=== PATIENT | male | born 1950 | race Caucasian/White ===

== ENCOUNTER 2019-11-04 12:10 | Inpatient (IN) | payer MEDICARE, BC ==
[2019-11-04 12:48] LABS: ANION GAP 14.1; CHLORIDE,CL 99 mmol/L (101-111); SODIUM,NA 137 mmol/L (135-145)
--- NOTE | 2019-11-04 13:08 | EDM.PDOC ---
ED HPI GENERAL MEDICAL PROBLEM - General Chief Complaint: Cardiovascular Problem Stated Complaint: AMBULANCE Time Seen by Provider: 11/04/19 12:58 Source of Information: Reports: Patient, RN, RN Notes Reviewed History Limitations: Reports: No Limitations - History of Present Illness INITIAL COMMENTS - FREE TEXT/NARRATIVE: patient to ER per [facility] with complaint of decreased mobility due to increased swelling to the right lower leg. Patient states he had a right hip replacement on October 22 at [facility] by Dr. Santana. states he was seen on October 26 in the ER for a post surgical seroma of the right hip/buttock. Patient was seen by Dr. Cespedes in the clinic on Tuesday. He states labs and ultrasound were done at that time, but results have not beenelayed to the patient yet. was also given Lasix 10 mg on that day.Patient's states he does have a history of a valve insufficiency. Onset: Gradual Duration: Constant, Getting Worse Location: Reports: Lower Extremity, Right - Related Data Allergies Allergy/AdvReac Type Severity Reaction Status Date / Time No Known Allergies Allergy Verified 11/04/19 14:39 Home Meds: Home Meds Aspirin [Halfprin] 81 mg PO DAILY 12/02/13 [History] Metoprolol Succinate [Toprol XL] 50 mg PO BID 12/02/13 [History] Losartan [Cozaar] 25 mg PO DAILY 04/29/15 [History] Bumetanide [Bumex] 3 mg PO DAILY 07/24/15 [History] Potassium Chloride [Klor-Con 10] 30 meq PO BIDMEALS 02/19/16 [History] Sertraline [Zoloft] 75 mg PO BEDTIME 02/19/16 [History] Warfarin Sodium [Jantoven] 6 mg PO DAILY 07/18/16 [History] Albuterol Sulfate [Proair Hfa] 1 puff IH BID PRN 11/04/19 [History] Allopurinol [Zyloprim] 100 mg PO TID 11/04/19 [History] Budesonide/Formoterol Fumarate [Symbicort 160-4.5 Mcg Inhaler] 2 puff IH BID [History] Carboxymethylcellulose Sodium [Refresh Tears] 2 drop EYELF BID 11/04/19 [History ] Docusate Sodium [Colace Clear] 50 mg PO BID 11/04/19 [History] Latanoprost 1 drop EYELF BEDTIME 11/04/19 [History] Pantoprazole [ProTONIX] 40 mg PO DAILY 11/04/19 [History] Pregabalin 150 mg PO QPM 11/04/19 [History] Rosuvastatin [Crestor] 10 mg PO BEDTIME 11/04/19 [History] Timolol Maleate [Timoptic 0.5% Opth Soln] 1 drop EYELF DAILY 11/04/19 [History] dexAMETHasone [Decadron 0.1% Ophth Soln] 1 drop EYELF DAILY 11/04/19 [History] metFORMIN HCl [Metformin HCl] 500 mg PO BID 11/04/19 [History] metOLazone [Metolazone] 2.5 mg PO DAILY 11/04/19 [History] Past Medical History HEENT History: Reports: Other (See Below) Other HEENT History: 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 retinal detachment Cardiovascular History: Reports: Afib, SOB on Exertion Other Cardiovascular History: a fib Respiratory History: Reports: COPD, Sleep Apnea, SOB Gastrointestinal History: Reports: GERD Musculoskeletal History: Reports: Arthritis Psychiatric History: Reports: Depression Endocrine/Metabolic History: Reports: Obesity/BMI 30+ - Past Surgical History HEENT Surgical History: Reports: Other (See Below) Musculoskeletal Surgical History: Reports: Hip Replacement, Other (See Below) Social & Family History - Family History Family Medical History: Noncontributory - Tobacco Use Smoking Status *Q: Former Smoker Used Tobacco, but Quit: Yes Month/Year Tobacco Last Used: quit 4 years ago - Recreational Drug Use Recreational Drug Use: No - Living Situation & Occupation Living situation: Reports: , with Family ED ROS GENERAL - Review of Systems Review Of Systems: Comprehensive ROS is negative, except as noted in HPI. ED EXAM, GENERAL - Physical Exam Exam: See Below Exam Limited By: No Limitations General Appearance: Alert, WD/WN, Mild Distress Eye Exam: Left Eye: Proptosis Ears: Normal External Exam, Hearing Grossly Normal Nose: Normal Inspection Throat/Mouth: Normal Inspection, Normal Voice, No Airway Compromise Head: Atraumatic, Normocephalic Neck: Normal Inspection, Supple, Non-Tender, Full Range of Motion Respiratory/Chest: No Respiratory Distress, Lungs Clear, Normal Breath Sounds, No Accessory Muscle Use, Chest Non-Tender Cardiovascular: Normal Peripheral Pulses, Regular Rate, Rhythm, No Edema, No Gallop, No JVD, No Murmur, No Rub Peripheral Pulses: 1+: Dorsalis Pedis (L), Dorsalis Pedis (R), 2+: Radial (L), Radial (R) GI/Abdominal: Normal Bowel Sounds, Soft, Non-Tender (Male) Exam: Deferred Rectal (Males) Exam: Deferred Back Exam: Normal Inspection, Full Range of Motion, NT Extremities: Normal Inspection, Normal Range of Motion, Normal Capillary Refill , Joint Swelling, Leg Pain Neurological: Alert, Oriented, CN II-XII Intact, Normal Cognition, Normal Gait, Normal Reflexes, No Motor/Sensory Deficits Psychiatric: Normal Affect, Normal Mood Skin Exam: Warm, Dry, Intact, No Rash Lymphatic: No Adenopathy Course - Vital Signs Last Recorded V/S: Last Vital Signs Temp 98.1 F 11/05/19 07:41 Pulse 76 11/05/19 08:35 Resp 18 11/05/19 07:41 BP 117/61 11/05/19 08:36 Pulse Ox 93 L 11/05/19 07:41 - Orders/Labs/Meds Orders: Active Orders 24 hr Category Date Time Status Peripheral IV Care [RC] 09,21 Care 11/04/19 12:11 Active Sodium Chloride 0.9% [Saline Flush] Med 11/04/19 12:11 Active 10 ml FLUSH ASDIRECTED PRN Peripheral IV Insertion Adult [OM.PC] Stat Oth 11/04/19 12:11 Ordered Medication Orders Albuterol (Proventil Hfa) 0 gm INH BID PRN PRN Reason: Wheezing Allopurinol (Zyloprim) 100 mg PO TID [facility] Last Admin: 11/05/19 08:36 Dose: 100 mg Admin: 11/04/19 20:48 Dose: 100 mg Artificial Tears (Refresh Celluvisc) 0 each EYELF BID [facility] Last Admin: 11/05/19 08:44 Dose: 1 each Aspirin (Halfprin) 81 mg PO DAILY [facility] Last Admin: 11/05/19 08:34 Dose: 81 mg Dexamethasone (Decadron 0.1% Ophth Soln) 0 ml EYELF DAILY [facility] Last Admin: 11/05/19 08:45 Dose: 1 drop Admin: 11/04/19 21:10 Dose: Not Given Docusate Sodium (Colace) 100 mg PO BID [facility] Last Admin: 11/05/19 08:33 Dose: 100 mg Admin: 11/04/19 20:48 Dose: 100 mg Furosemide (Lasix) 60 mg IVPUSH BID@0800,1400 [facility] Last Admin: 11/05/19 08:36 Dose: 60 mg Insulin Human Lispro (Humalog) 0 unit SUBCUT WITHMEALSANDBED [facility]; Protocol Last Admin: 11/05/19 08:36 Dose: Not Given Admin: 11/04/19 20:45 Dose: Admin: 11/04/19 18:21 Dose: Not Given Latanoprost (Xalatan 0.005% Oph Soln) 0 ml EYELF BEDTIME [facility] Last Admin: 11/04/19 20:46 Dose: 1 drop Losartan Potassium (Cozaar) 25 mg PO DAILY [facility] Last Admin: 11/05/19 08:36 Dose: 25 mg Metformin HCl (Glucophage) 500 mg PO BIDMEALS [facility] Last Admin: 11/05/19 08:35 Dose: 500 mg Admin: 11/04/19 18:35 Dose: 500 mg Metolazone (Zaroxolyn) 2.5 mg PO DAILY [facility] Last Admin: 11/05/19 08:36 Dose: 2.5 mg Metoprolol Succinate (Toprol Xl) 50 mg PO BID [facility] Last Admin: 11/05/19 08:35 Dose: 50 mg Admin: 11/04/19 20:48 Dose: 50 mg Mometasone Furoate/Formoterol Fumar (Dulera 200-5 Mcg) 2 puff IH BID [facility] Last Admin: 11/05/19 08:46 Dose: 2 puff Admin: 11/04/19 20:46 Dose: 2 puff Pantoprazole Sodium (Protonix) 40 mg PO ACBREAKFAST [facility] Last Admin: 11/05/19 05:49 Dose: 40 mg Potassium Chloride (Klor-Con 10) 30 meq PO BIDMEALS [facility] Last Admin: 11/05/19 08:34 Dose: 30 meq Admin: 11/04/19 18:34 Dose: 30 meq Potassium Chloride (Klor-Con 10) 20 meq PO ONETIME ONE Stop: 11/05/19 09:24 Pregabalin (Lyrica) 150 mg PO BEDTIME [facility] Last Admin: 11/04/19 20:48 Dose: 150 mg Rosuvastatin Calcium (Crestor) 10 mg PO BEDTIME [facility] Last Admin: 11/04/19 20:47 Dose: 10 mg Sertraline HCl (Zoloft) 75 mg PO BEDTIME [facility] Last Admin: 11/04/19 20:48 Dose: 75 mg Sodium Chloride (Saline Flush) 10 ml FLUSH ASDIRECTED PRN PRN Reason: Keep Vein Open Last Admin: 11/04/19 14:25 Dose: 10 ml Timolol Maleate (Timoptic 0.5% Ophth Soln) 0 ml EYELF DAILY [facility] Last Admin: 11/05/19 08:45 Dose: 1 drop Warfarin Sodium (Pharmacy To Dose - Warfarin) 1 dose .XX ASDIRECTED [facility] Labs: Laboratory Tests 11/04/19 11/04/19 Range/Units 12:23 12:23 WBC 9.9 (5.0-10.0) 10^3/uL RBC 3.96 L (4.6-6.2) 10^6/uL Hgb 13.1 L (14.0-18.0) g/dL Hct 39.9 L (40.0-54.0) % MCV 100.8 H (80-100) fL MCH 33.1 (27.0-34.0) pg MCHC 32.8 L (33.0-35.0) g/dL Plt Count 361 D (150-450) 10^3/uL Neut % (Auto) 76.1 H (42.2-75.2) % Lymph % (Auto) 15.2 L (20.5-50.1) % [place] % (Auto) 5.9 (2-8) % Eos % (Auto) 2.3 (1.0-3.0) % Baso % (Auto) 0.5 (0.0-1.0) % Sodium 137 (135-145) mmol/L Potassium 3.1 L (3.6-5.0) mmol/L Chloride 99 L (101-111) mmol/L Carbon Dioxide 27.0 (21.0-31.0) mmol/L Anion Gap 14.1 BUN 15 (7-18) mg/dL Creatinine 0.9 (0.6-1.3) mg/dL Est Cr Clr Drug Dosing TNP Estimated GFR (MDRD) > 60 BUN/Creatinine Ratio 16.66 Glucose 156 H (74-105) mg/dL Calcium 8.7 (8.4-10.2) mg/dl Total Bilirubin 0.7 (0.2-1.0) mg/dL AST 20 (10-42) IU/L ALT 15 (10-60) IU/L Alkaline Phosphatase 88 (42-121) IU/L Troponin I < 0.02 (0.00-0.02) ng/ml B-Natriuretic Peptide 20 (0-100) pg/ml Total Protein 6.7 (6.7-8.2) g/dl Albumin 3.6 (3.2-5.5) g/dl Globulin 3.1 Albumin/Globulin Ratio 1.16 Meds: Medications Generic Name Dose Route Start Last Admin Trade Name Freq PRN Reason Stop Dose Admin Albuterol 0 gm 11/04/19 17:57 Proventil Hfa INH BID PRN Wheezing Allopurinol 100 mg 11/04/19 21:00 11/05/19 08:36 Zyloprim PO 100 mg TID [facility] Administration Artificial Tears 0 each 11/05/19 09:00 11/05/19 08:44 Refresh Celluvisc EYELF 1 each BID [facility] Administration Aspirin 81 mg 11/05/19 09:00 11/05/19 08:34 Halfprin PO 81 mg DAILY [facility] Administration Dexamethasone 0 ml 11/04/19 20:45 11/05/19 08:45 Decadron 0.1% Ophth Soln EYELF 1 drop DAILY [facility] Administration Docusate Sodium 100 mg 11/04/19 21:00 11/05/19 08:33 Colace PO 100 mg BID [facility] Administration Furosemide 60 mg 11/05/19 08:00 11/05/19 08:36 Lasix IVPUSH 60 mg BID@0800,1400 [facility] Administration Insulin Human Lispro 0 unit 11/04/19 18:00 11/05/19 08:36 Humalog SUBCUT Not Given WITHMEALSANDBED [facility] Protocol Latanoprost 0 ml 11/04/19 21:00 11/04/19 20:46 Xalatan 0.005% Ophth Soln EYELF 1 drop BEDTIME [facility] Administration Losartan Potassium 25 mg 11/05/19 09:00 11/05/19 08:36 Cozaar PO 25 mg DAILY [facility] Administration Metformin HCl 500 mg 11/04/19 18:00 11/05/19 08:35 Glucophage PO 500 mg BIDMEALS [facility] Administration Metolazone 2.5 mg 11/05/19 09:00 11/05/19 08:36 Zaroxolyn PO 2.5 mg DAILY [facility] Administration Metoprolol Succinate 50 mg 11/04/19 21:00 11/05/19 08:35 Toprol Xl PO 50 mg BID [facility] Administration Mometasone Furoate/Formoterol Fumar 2 puff 11/04/19 21:00 11/05/19 08:46 Dulera 200-5 Mcg IH 2 puff BID [facility] Administration Pantoprazole Sodium 40 mg 11/05/19 06:00 11/05/19 05:49 Protonix PO 40 mg ACBREAKFAST [facility] Administration Potassium Chloride 30 meq 11/04/19 18:00 11/05/19 08:34 Klor-Con 10 PO 30 meq BIDMEALS [facility] Administration Potassium Chloride 20 meq 11/05/19 09:23 Klor-Con 10 PO 11/05/19 09:24 ONETIME ONE Pregabalin 150 mg 11/04/19 21:00 11/04/19 20:48 Lyrica PO 150 mg BEDTIME [facility] Administration Rosuvastatin Calcium 10 mg 11/04/19 21:00 11/04/19 20:47 Crestor PO 10 mg BEDTIME [facility] Administration Sertraline HCl 75 mg 11/04/19 21:00 11/04/19 20:48 Zoloft PO 75 mg BEDTIME [facility] Administration Sodium Chloride 10 ml 11/04/19 12:11 11/04/19 14:25 Saline Flush FLUSH 10 ml ASDIRECTED PRN Administration Keep Vein Open Timolol Maleate 0 ml 11/05/19 09:00 11/05/19 08:45 Timoptic 0.5% Ophth Soln EYELF 1 drop DAILY [facility] Administration Warfarin Sodium 1 dose 11/04/19 16:00 Pharmacy To Dose - Warfarin .XX ASDIRECTED [facility] Discontinued Medications Generic Name Dose Route Start Last Admin Trade Name Freq PRN Reason Stop Dose Admin Dexamethasone 0 ml 11/04/19 21:00 Decadron 0.1% Ophth Soln EYERT BID [facility] Dexamethasone 1 ml 11/04/19 20:30 11/04/19 21:09 Decadron 0.1% Ophth Soln EYELF Not Given BID [facility] Furosemide 60 mg 11/04/19 15:41 11/04/19 15:53 Lasix IVPUSH 11/04/19 15:42 60 mg NOW ONE Administration Non-Formulary Medication 1 drop 11/05/19 09:00 Timolol [Betimol] OP DAILY [facility] Non-Formulary Medication 15 ml 11/04/19 21:00 Carboxymethylcellulose Sodium EYELF BID [facility] Potassium Chloride 40 meq 11/04/19 15:55 11/04/19 17:04 Klor-Con 10 PO 11/04/19 15:56 40 meq ONETIME ONE Administration Warfarin Sodium 6 mg 11/05/19 18:00 Coumadin PO DAILY@1800 [facility] - Radiology Interpretation Free Text/Narrative:: Chest xray: FINDINGS: Limitations: Patient positioning limits the examination. Apical lordotic technique was utilized. Lungs: Unremarkable. No consolidation. Pleural space: Unremarkable. No pleural effusion. No pneumothorax. Heart/Mediastinum: There is cardiomegaly. Bones/joints: Unremarkable. IMPRESSION: No acute findings. Thank you for allowing us to participate in the care of your patient. Dictated and Authenticated by: Everardo Edwards MD 11/04/2019 1:18 PM Central Time ([place] & [place]) See rad report - Re-Assessments/Exams Free Text/Narrative Re-Assessment/Exam: Discussed patient case with Dr. Munguia who agreed to accept the patient for inpatient admission. Departure - Departure Time of Disposition: 14:00 Disposition: Admitted As Inpatient 68 Reason for Transfer *Q: Other Condition: Fair Clinical Impression: Lymphedema Sepsis Event Note - Evaluation Sepsis Screening Result: No Definite Risk - Focused Exam Date Exam was Performed: 11/05/19 Time Exam was Performed: 09:54 - My Orders Last 24 Hours: My Active Orders 11/04/19 12:11 Peripheral IV Care [RC] 09,21 Sodium Chloride 0.9% [Saline Flush] 10 ml FLUSH ASDIRECTED PRN Peripheral IV Insertion Adult [OM.PC] Stat - Assessment/Plan Last 24 Hours: My Active Orders 11/04/19 12:11 Peripheral IV Care [RC] 09,21 Sodium Chloride 0.9% [Saline Flush] 10 ml FLUSH ASDIRECTED PRN Peripheral IV Insertion Adult [OM.PC] Stat
[2019-11-04] MEDS: Sodium Chloride 0.9% 10 ML Syringe FLUSH PRN (14:25)
--- NOTE | 2019-11-04 15:12 | PCM.HP ---
H&P History of Present Illness - General Date of Service: 11/04/19 Admit Problem/Dx: Admission Diagnosis/Problem Admission Diagnosis/Problem Lymphedema Source of Information: Patient, Old Records - History of Present Illness Initial Comments - Free Text/Narative: This is a 69 Y/O M with past Medical history of Hypertension, Diabetes, A-Fib, COPD, GERD, S/P right total hip arthoplasty by Dr Santana on 10/18/19. Pt presented to ER with complain of weakness and swelling of Rt LE. He has Rt LE little more swollen than Left LE and it is secondary to Rt YESSY. He says he chronically use tight stockings but not able to use it because swelling is more. He is able to walk with walker and he will have follow up with Dr. Santana in Nov, and at that time he is going to recommend Physical therapy. Onset of Symptoms: Reports: Gradual Duration of Symptoms: Reports: Day(s): - Related Data Allergies/Adverse Reactions: Allergies Allergy/AdvReac Type Severity Reaction Status Date / Time No Known Allergies Allergy Verified 11/04/19 14:39 Home Medications: Home Meds Aspirin [Halfprin] 81 mg PO DAILY 12/02/13 [History] Metoprolol Succinate [Toprol XL] 50 mg PO BID 12/02/13 [History] Losartan [Cozaar] 25 mg PO DAILY 04/29/15 [History] Bumetanide [Bumex] 3 mg PO DAILY 07/24/15 [History] Potassium Chloride [Klor-Con 10] 30 meq PO BIDMEALS 02/19/16 [History] Sertraline [Zoloft] 75 mg PO BEDTIME 02/19/16 [History] Warfarin Sodium [Jantoven] 6 mg PO DAILY 07/18/16 [History] Allopurinol [Zyloprim] 100 mg PO TID 11/04/19 [History] Docusate Sodium [Colace Clear] 50 mg PO BID 11/04/19 [History] Pantoprazole [ProTONIX] 40 mg PO DAILY 11/04/19 [History] Pregabalin 150 mg PO QPM 11/04/19 [History] Rosuvastatin [Crestor] 10 mg PO BEDTIME 11/04/19 [History] Timolol [Betimol] 1 drop OP DAILY 11/04/19 [History] dexAMETHasone [Decadron 0.1% Ophth Soln] 2 drop OP BID 11/04/19 [History] metFORMIN HCl [Metformin HCl] 500 mg PO BID 11/04/19 [History] metOLazone [Metolazone] 2.5 mg PO DAILY 11/04/19 [History] Past Medical History HEENT History: Reports: Other (See Below) Other HEENT History: 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 retinal detachment Cardiovascular History: Reports: Afib, SOB on Exertion Other Cardiovascular History: a fib Respiratory History: Reports: COPD, Sleep Apnea, SOB Gastrointestinal History: Reports: GERD Musculoskeletal History: Reports: Arthritis Psychiatric History: Reports: Depression Endocrine/Metabolic History: Reports: Obesity/BMI 30+ - Past Surgical History HEENT Surgical History: Reports: Other (See Below) Musculoskeletal Surgical History: Reports: Hip Replacement, Other (See Below) Social & Family History - Family History Family Medical History: Noncontributory - Tobacco Use Smoking Status *Q: Former Smoker Used Tobacco, but Quit: Yes Month/Year Tobacco Last Used: quit 4 years ago - Recreational Drug Use Recreational Drug Use: No - Living Situation & Occupation Living situation: Reports: , with Family H&P Review of Systems - Review of Systems: Review Of Systems: See Below General: Reports: Weakness. Denies: Fever, Malaise HEENT: Denies: Dysphasia, Headaches, Sinus Congestion, Sore Throat, Visual Changes Pulmonary: Denies: Shortness of Breath, Wheezing, Cough, Sputum Cardiovascular: Reports: Edema. Denies: Chest Pain, Lightheadedness Gastrointestinal: Denies: Abdominal Pain, Diarrhea, Nausea, Vomiting Genitourinary: Denies: Dysuria, Burning, Urgency, Flank Pain Musculoskeletal: Reports: Other (Rt hip Pain). Denies: Neck Pain, Arm Pain, Leg Pain Skin: Denies: Jaundice, Rash, Change in Color Psychiatric: Reports: No Symptoms Neurological: Reports: No Symptoms Exam - Exam Exam: See Below - Vital Signs Vital Signs: Last Vital Signs Temp 36.3 C 11/04/19 14:42 Pulse 90 11/04/19 14:42 Resp 20 11/04/19 14:42 BP 142/78 H 11/04/19 14:42 Pulse Ox 98 11/04/19 14:42 Weight: 143.97 kg - Exam Quality Assessment: DVT Prophylaxis. No: Supplemental Oxygen, Urinary Catheter General: Alert, Oriented, Cooperative HEENT: Conjunctiva Clear, EOMI, Mucosa Moist & [place], Pupils Equal Neck: No: Lymphadenopathy, Thyromegaly Lungs: Clear to Auscultation, Normal Respiratory Effort Cardiovascular: Irregular Rhythm, Systolic Murmur GI/Abdominal Exam: Normal Bowel Sounds, Soft, Non-Tender, No Organomegaly, No Distention (Male) Exam: Deferred Rectal (Males) Exam: Deferred Back Exam: Normal Inspection Extremities: Normal Inspection, Pedal Edema Skin: Warm, Dry, Intact Neurological: Cranial Nerves Intact, Reflexes Equal Bilateral Neuro Extensive - Mental Status: Alert, Oriented x3, Normal Mood/Affect, Normal Cognition, Memory Intact Neuro Extensive - Motor, Sensory, Reflexes: CN II-XII Intact Psychiatric: Alert, Normal Affect, Normal Mood - Patient Data Lab Results Last 24 hrs: Laboratory Results - last 24 hr 11/04/19 11/04/19 Range/Units 12:23 12:23 WBC 9.9 (5.0-10.0) 10^3/uL RBC 3.96 L (4.6-6.2) 10^6/uL Hgb 13.1 L (14.0-18.0) g/dL Hct 39.9 L (40.0-54.0) % MCV 100.8 H (80-100) fL MCH 33.1 (27.0-34.0) pg MCHC 32.8 L (33.0-35.0) g/dL Plt Count 361 D (150-450) 10^3/uL Neut % (Auto) 76.1 H (42.2-75.2) % Lymph % (Auto) 15.2 L (20.5-50.1) % [place] % (Auto) 5.9 (2-8) % Eos % (Auto) 2.3 (1.0-3.0) % Baso % (Auto) 0.5 (0.0-1.0) % Sodium 137 (135-145) mmol/L Potassium 3.1 L (3.6-5.0) mmol/L Chloride 99 L (101-111) mmol/L Carbon Dioxide 27.0 (21.0-31.0) mmol/L Anion Gap 14.1 BUN 15 (7-18) mg/dL Creatinine 0.9 (0.6-1.3) mg/dL Est Cr Clr Drug Dosing TNP Estimated GFR (MDRD) > 60 BUN/Creatinine Ratio 16.66 Glucose 156 H (74-105) mg/dL Calcium 8.7 (8.4-10.2) mg/dl Total Bilirubin 0.7 (0.2-1.0) mg/dL AST 20 (10-42) IU/L ALT 15 (10-60) IU/L Alkaline Phosphatase 88 (42-121) IU/L Troponin I < 0.02 (0.00-0.02) ng/ml B-Natriuretic Peptide 20 (0-100) pg/ml Total Protein 6.7 (6.7-8.2) g/dl Albumin 3.6 (3.2-5.5) g/dl Globulin 3.1 Albumin/Globulin Ratio 1.16 Result Diagrams: 11/04/19 12:23 11/04/19 12:23 - Problem List (1) Hypertension SNOMED Code(s): 60818734 ICD Code: I10 - ESSENTIAL (PRIMARY) HYPERTENSION Status: Acute Current Visit: Yes (2) Atrial fibrillation SNOMED Code(s): 55667171 ICD Code: I48.91 - UNSPECIFIED ATRIAL FIBRILLATION Status: Acute Current Visit: No Qualifiers: Atrial fibrillation type: chronic (3) Leg edema SNOMED Code(s): 233918974 ICD Code: R60.0 - LOCALIZED EDEMA Status: Acute Current Visit: No Problem List Initiated/Reviewed/Updated: Yes Orders Last 24hrs: Active Orders 24 hr Category Date Time Status Admission Diagnosis [ADT] Stat ADT 11/04/19 14:25 Ordered Admission Status [Patient Status] [ADT] Routine ADT 11/04/19 14:25 Active EKG Documentation Completion [RC] STAT Care 11/04/19 12:11 Active Peripheral IV Care [RC] . DIRECTED Care 11/04/19 12:11 Active Chest 1V Frontal [CR] Stat Exams 11/04/19 12:11 Taken Sodium Chloride 0.9% [Saline Flush] Med 11/04/19 12:11 Active 10 ml FLUSH ASDIRECTED PRN Peripheral IV Insertion Adult [OM.PC] Stat Oth 11/04/19 12:11 Ordered Medication Orders Sodium Chloride (Saline Flush) 10 ml FLUSH ASDIRECTED PRN PRN Reason: Keep Vein Open Last Admin: 11/04/19 14:25 Dose: 10 ml Assessment/Plan Comment:: This is a 69 Y/O M with past Medical history of Hypertension, Diabetes, A-Fib, COPD, GERD, S/P right total hip arthoplasty by Dr Santana on 10/18/19. Pt presented to ER with complain of weakness and swelling of Rt LE. He has Rt LE little more swollen than Left LE and it is secondary to Rt YESSY. He says he chronically use tight stockings but not able to use it because swelling is more. He is able to walk with walker and he will have follow up with Dr. Santana in Nov, and at that time he is going to recommend Physical therapy. Impression and Plan: 1. Edema of Extremities: He has significant fluid retention to B/L LE, with Right >left -Will give lasix 60 mg IV X 1 dose now -Will continue lasix at 40 mg IV daily From tomorrow ( 11/05/19) -Continue to use tight stockings 2. Hypertension: Continue Metoprolol 50 mg BID 3. Weakness: S/P Right YESSY and he will need follow up with Dr. Santana and he will recommend when to start PT/OT, without his approval will not start PT/OT, he has appointment in November with him and at that time he will recommend when to start PT/OT 4. A-Fib- rate controlled and continue chronic anti-coagulation with Coumadin 5. Diabetes II ( Non-Insulin Dependent): He is on Metformin 500 mg BID -Will check BS 4 times a day -Will cover with sliding scale coverage with Insulin 6. Hypokalemia: This is secondary to diuresis and will continue potassium chloride at 30 meq BID and will give an extra dose of 40 meq X 1 -Recheck potassium in AM DVT Prophylaxis: He is on anticoagulation ( Coumadin) Code Status: He is FULL CODE
[2019-11-04] MEDS ORDERED: Furosemide 40 MG/4 ML VIAL IVPUSH ONE (15:41)
[2019-11-04] MEDS ORDERED: Potassium Chloride 10 MEQ Tab.ER PO ONE (15:55)
[2019-11-04] MEDS ORDERED: Albuterol 6.7 GM Inhaler INH PRN (17:57)
[2019-11-04] MEDS: Insulin Lispro 100 Units/ML 3 ML Vial SUBCUT SCH ×2 (18:21→20:45)
[2019-11-04] MEDS: Potassium Chloride 10 MEQ Tab.ER PO SCH (18:34)
[2019-11-04] MEDS: metFORMIN 500 MG Tab PO SCH (18:35)
[2019-11-04] MEDS ORDERED: Dexamethasone 0.1% Ophth Soln 5 ML Bottle EYELF SCH (20:30)
[2019-11-04] MEDS: Formoterol/Mometasone 200-5 MCG 8.8 GM Inhaler IH SCH (20:46)
[2019-11-04] MEDS: Latanoprost 0.005% Ophth Soln 2.5 ML Bottle EYELF SCH (20:46)
[2019-11-04] MEDS: Rosuvastatin 10 MG Tab PO SCH (20:47)
[2019-11-04] MEDS: Metoprolol Succinate 50 MG Tab.ER PO SCH (20:48)
[2019-11-04] MEDS: Sertraline 50 MG Tab PO SCH (20:48)
[2019-11-04] MEDS: Allopurinol 100 MG Tab PO SCH (20:48)
[2019-11-04] MEDS: Docusate Sodium 100 MG Cap PO SCH (20:48)
[2019-11-04] MEDS ORDERED: Dexamethasone 0.1% Ophth Soln 5 ML Bottle EYERT SCH (21:00)
[2019-11-04] MEDS ORDERED: CARBOXYMETHYLCELLULOSE SODIUM EYELF SCH (21:00)
[2019-11-04] MEDS: DEXAMETHASONE 0.1% EYELF SCH (21:10)
[2019-11-05] MEDS: Pantoprazole 40 MG Tab.CR PO SCH (05:49)
[2019-11-05 07:10] LABS: ANION GAP 16.5; CHLORIDE,CL 99 mmol/L (101-111); SODIUM,NA 138 mmol/L (135-145)
[2019-11-05] MEDS: Docusate Sodium 100 MG Cap PO SCH ×2 (08:33→22:01)
[2019-11-05] MEDS: Potassium Chloride 10 MEQ Tab.ER PO SCH ×2 (08:34→17:45)
[2019-11-05] MEDS: Aspirin 81 MG Tab.EC PO SCH (08:34)
[2019-11-05] MEDS: Metoprolol Succinate 50 MG Tab.ER PO SCH ×2 (08:35→22:04)
[2019-11-05] MEDS: metFORMIN 500 MG Tab PO SCH ×2 (08:35→17:45)
[2019-11-05] MEDS: Insulin Lispro 100 Units/ML 3 ML Vial SUBCUT SCH ×4 (08:36→22:08)
[2019-11-05] MEDS: Metolazone 2.5 MG Tab PO SCH (08:36)
[2019-11-05] MEDS: Losartan 25 MG Tab PO SCH (08:36)
[2019-11-05] MEDS: Furosemide 40 MG/4 ML VIAL IVPUSH SCH ×2 (08:36→14:07)
[2019-11-05] MEDS: Allopurinol 100 MG Tab PO SCH ×3 (08:36→22:21)
[2019-11-05] MEDS: Carboxymethylcellulose Sodium 1% Ophth Gel 0.4 ML UD EYELF SCH ×2 (08:44→22:05)
[2019-11-05] MEDS: Timolol Maleate 0.5% Ophth Soln 5 ML Bottle EYELF SCH (08:45)
[2019-11-05] MEDS: DEXAMETHASONE 0.1% EYELF SCH (08:45)
[2019-11-05] MEDS: Formoterol/Mometasone 200-5 MCG 8.8 GM Inhaler IH SCH ×2 (08:46→22:06)
[2019-11-05] MEDS ORDERED: TIMOLOL OP SCH (09:00)
[2019-11-05] MEDS ORDERED: Potassium Chloride 10 MEQ Tab.ER PO ONE (10:00)
--- NOTE | 2019-11-05 11:11 | PCM.PN ---
- General Info Date of Service: 11/05/19 Admission Dx/Problem (Free Text): Admission Diagnosis/Problem Admission Diagnosis/Problem Lymphedema and weight gain Subjective Update: Pt was seen in room, doing well, No nause or Vomiting, No fever or Chill, appetite is good and responding to diuretics Functional Status: Reports: Pain Controlled, Tolerating Diet, Ambulating, Urinating - Review of Systems General: Reports: Weakness, Appetite (Good). Denies: Fever, Chills HEENT: Denies: Headaches, Sinus Congestion, Sore Throat, Visual Changes Pulmonary: Denies: Shortness of Breath, Pleuritic Chest Pain, Cough, Wheezing Cardiovascular: Reports: Edema. Denies: Chest Pain, Dyspnea on Exertion, Lightheadedness Gastrointestinal: Denies: Abdominal Pain, Diarrhea, Nausea, Vomiting Genitourinary: Denies: Dysuria, Burning, Urgency, Flank Pain Musculoskeletal: Reports: Other (rt hip pain). Denies: Neck Pain, Shoulder Pain , Hand Pain Skin: Denies: Cyanosis, Jaundice, Bruising, Pruritis, Rash Neurological: Denies: Confusion, Numbness, Tremors Psychiatric: Reports: No Symptoms, Confusion - Patient Data Vitals - Most Recent: Last Vital Signs Temp 36.7 C 11/05/19 07:41 Pulse 76 11/05/19 08:35 Resp 18 11/05/19 07:41 BP 117/61 11/05/19 08:36 Pulse Ox 93 L 11/05/19 07:41 Weight - Most Recent: 143.97 kg I&O - Last 24 Hours: Intake & Output 11/04/19 11/05/19 11/05/19 22:59 06:59 14:59 Intake Total 510 360 Output Total 755 Balance -245 360 Lab Results Last 24 Hours: Laboratory Results - last 24 hr 11/04/19 11/04/19 11/04/19 Range/Units 12:23 12:23 17:00 WBC 9.9 (5.0-10.0) 10^3/uL RBC 3.96 L (4.6-6.2) 10^6/uL Hgb 13.1 L (14.0-18.0) g/dL Hct 39.9 L (40.0-54.0) % MCV 100.8 H (80-100) fL MCH 33.1 (27.0-34.0) pg MCHC 32.8 L (33.0-35.0) g/dL Plt Count 361 D (150-450) 10^3/uL Neut % (Auto) 76.1 H (42.2-75.2) % Lymph % (Auto) 15.2 L (20.5-50.1) % [place] % (Auto) 5.9 (2-8) % Eos % (Auto) 2.3 (1.0-3.0) % Baso % (Auto) 0.5 (0.0-1.0) % PT (9.0-12.0) SEC INR (0.9-1.2) Sodium 137 (135-145) mmol/L Potassium 3.1 L (3.6-5.0) mmol/L Chloride 99 L (101-111) mmol/L Carbon Dioxide 27.0 (21.0-31.0) mmol/L Anion Gap 14.1 BUN 15 (7-18) mg/dL Creatinine 0.9 (0.6-1.3) mg/dL Est Cr Clr Drug Dosing TNP Estimated GFR (MDRD) > 60 BUN/Creatinine Ratio 16.66 Glucose 156 H (74-105) mg/dL POC Glucose 92 (70-105) mg/dl Calcium 8.7 (8.4-10.2) mg/dl Total Bilirubin 0.7 (0.2-1.0) mg/dL AST 20 (10-42) IU/L ALT 15 (10-60) IU/L Alkaline Phosphatase 88 (42-121) IU/L Troponin I < 0.02 (0.00-0.02) ng/ml B-Natriuretic Peptide 20 (0-100) pg/ml Total Protein 6.7 (6.7-8.2) g/dl Albumin 3.6 (3.2-5.5) g/dl Globulin 3.1 Albumin/Globulin Ratio 1.16 11/04/19 11/05/19 11/05/19 Range/Units 20:45 06:30 06:30 WBC (5.0-10.0) 10^3/uL RBC (4.6-6.2) 10^6/uL Hgb (14.0-18.0) g/dL Hct (40.0-54.0) % MCV (80-100) fL MCH (27.0-34.0) pg MCHC (33.0-35.0) g/dL Plt Count (150-450) 10^3/uL Neut % (Auto) (42.2-75.2) % Lymph % (Auto) (20.5-50.1) % [place] % (Auto) (2-8) % Eos % (Auto) (1.0-3.0) % Baso % (Auto) (0.0-1.0) % PT 16.2 H (9.0-12.0) SEC INR 1.6 H (0.9-1.2) Sodium 138 (135-145) mmol/L Potassium 3.5 L (3.6-5.0) mmol/L Chloride 99 L (101-111) mmol/L Carbon Dioxide 26.0 (21.0-31.0) mmol/L Anion Gap 16.5 BUN 17 (7-18) mg/dL Creatinine 1.0 (0.6-1.3) mg/dL Est Cr Clr Drug Dosing 78.68 Estimated GFR (MDRD) > 60 BUN/Creatinine Ratio Glucose 118 H (74-105) mg/dL POC Glucose 105 (70-105) mg/dl Calcium 9.0 (8.4-10.2) mg/dl Total Bilirubin (0.2-1.0) mg/dL AST (10-42) IU/L ALT (10-60) IU/L Alkaline Phosphatase (42-121) IU/L Troponin I (0.00-0.02) ng/ml B-Natriuretic Peptide (0-100) pg/ml Total Protein (6.7-8.2) g/dl Albumin (3.2-5.5) g/dl Globulin Albumin/Globulin Ratio 11/05/ Range/Units 07:49 WBC (5.0-10.0) 10^3/uL RBC (4.6-6.2) 10^6/uL Hgb (14.0-18.0) g/dL Hct (40.0-54.0) % MCV (80-100) fL MCH (27.0-34.0) pg MCHC (33.0-35.0) g/dL Plt Count (150-450) 10^3/uL Neut % (Auto) (42.2-75.2) % Lymph % (Auto) (20.5-50.1) % [place] % (Auto) (2-8) % Eos % (Auto) (1.0-3.0) % Baso % (Auto) (0.0-1.0) % PT (9.0-12.0) SEC INR (0.9-1.2) Sodium (135-145) mmol/L Potassium (3.6-5.0) mmol/L Chloride (101-111) mmol/L Carbon Dioxide (21.0-31.0) mmol/L Anion Gap BUN (7-18) mg/dL Creatinine (0.6-1.3) mg/dL Est Cr Clr Drug Dosing Estimated GFR (MDRD) BUN/Creatinine Ratio Glucose (74-105) mg/dL POC Glucose 113 H (70-105) mg/dl Calcium (8.4-10.2) mg/dl Total Bilirubin (0.2-1.0) mg/dL AST (10-42) IU/L ALT (10-60) IU/L Alkaline Phosphatase (42-121) IU/L Troponin I (0.00-0.02) ng/ml B-Natriuretic Peptide (0-100) pg/ml Total Protein (6.7-8.2) g/dl Albumin (3.2-5.5) g/dl Globulin Albumin/Globulin Ratio Med Orders - Current: Current Medications Albuterol (Proventil Hfa) 0 gm INH BID PRN PRN Reason: Wheezing Allopurinol (Zyloprim) 100 mg PO TID [facility] Last Admin: 11/05/19 08:36 Dose: 100 mg Artificial Tears (Refresh Celluvisc) 0 each EYELF BID [facility] Last Admin: 11/05/19 08:44 Dose: 1 each Aspirin (Halfprin) 81 mg PO DAILY [facility] Last Admin: 11/05/19 08:34 Dose: 81 mg Dexamethasone (Decadron 0.1% Oph Soln) 0 ml EYELF DAILY [facility] Last Admin: 11/05/19 08:45 Dose: 1 drop Docusate Sodium (Colace) 100 mg PO BID [facility] Last Admin: 11/05/19 08:33 Dose: 100 mg Furosemide (Lasix) 60 mg IVPUSH BID@0800,1400 [facility] Last Admin: 11/05/19 08:36 Dose: 60 mg Insulin Human Lispro (Humalog) 0 unit SUBCUT WITHMEALSANDBED [facility]; Protocol Last Admin: 11/05/19 08:36 Dose: Not Given Latanoprost (Xalatan 0.005% Ophth Soln) 0 ml EYELF BEDTIME [facility] Last Admin: 11/04/19 20:46 Dose: 1 drop Losartan Potassium (Cozaar) 25 mg PO DAILY [facility] Last Admin: 11/05/19 08:36 Dose: 25 mg Metformin HCl (Glucophage) 500 mg PO BIDMEALS [facility] Last Admin: 11/05/19 08:35 Dose: 500 mg Metolazone (Zaroxolyn) 2.5 mg PO DAILY [facility] Last Admin: 11/05/19 08:36 Dose: 2.5 mg Metoprolol Succinate (Toprol Xl) 50 mg PO BID [facility] Last Admin: 11/05/19 08:35 Dose: 50 mg Mometasone Furoate/Formoterol Fumar (Dulera 200-5 Mcg) 2 puff IH BID [facility] Last Admin: 11/05/19 08:46 Dose: 2 puff Pantoprazole Sodium (Protonix) 40 mg PO ACBREAKFAST [facility] Last Admin: 11/05/19 05:49 Dose: 40 mg Potassium Chloride (Klor-Con 10) 30 meq PO BIDMEALS [facility] Last Admin: 11/05/19 08:34 Dose: 30 meq Pregabalin (Lyrica) 150 mg PO BEDTIME [facility] Last Admin: 11/04/19 20:48 Dose: 150 mg Rosuvastatin Calcium (Crestor) 10 mg PO BEDTIME [facility] Last Admin: 11/04/19 20:47 Dose: 10 mg Sertraline HCl (Zoloft) 75 mg PO BEDTIME [facility] Last Admin: 11/04/19 20:48 Dose: 75 mg Sodium Chloride (Saline Flush) 10 ml FLUSH ASDIRECTED PRN PRN Reason: Keep Vein Open Last Admin: 11/04/19 14:25 Dose: 10 ml Timolol Maleate (Timoptic 0.5% Ophth Soln) 0 ml EYELF DAILY [facility] Last Admin: 11/05/19 08:45 Dose: 1 drop Warfarin Sodium (Pharmacy To Dose - Warfarin) 1 dose .XX ASDIRECTED [facility] Warfarin Sodium (Coumadin) 6 mg PO ONETIME ONE Stop: 11/05/19 14:01 Discontinued Medications Dexamethasone (Decadron 0.1% Ophth Soln) 0 ml EYERT BID JASON Dexamethasone (Decadron 0.1% Ophth Soln) 1 ml EYELF BID [facility] Last Admin: 11/04/19 21:09 Dose: Not Given Furosemide (Lasix) 60 mg IVPUSH NOW ONE Stop: 11/04/19 15:42 Last Admin: 11/04/19 15:53 Dose: 60 mg Non-Formulary Medication (Timolol [Betimol]) 1 drop OP DAILY [facility] Non-Formulary Medication (Carboxymethylcellulose Sodium) 15 ml EYELF BID [facility] Potassium Chloride (Klor-Con 10) 40 meq PO ONETIME ONE Stop: 11/04/19 15:56 Last Admin: 11/04/19 17:04 Dose: 40 meq Potassium Chloride (Klor-Con 10) 20 meq PO ONETIME ONE Stop: 11/05/19 10:01 Warfarin Sodium (Coumadin) 6 mg PO DAILY@1800 [facility] - Exam Quality Assessment: DVT Prophylaxis. No: Supplemental Oxygen, Central Line/PICC , Urine Catheter General: Alert, Oriented, Cooperative HEENT: Pupils Equal, Pupils Reactive, EOMI, Mucous Membr. Moist/[place] Neck: No JVD, No Thyromegaly Lungs: Clear to Auscultation, Normal Respiratory Effort Cardiovascular: Regular Rate, Regular Rhythm, No Murmurs GI/Abdominal Exam: Normal Bowel Sounds, No Distention. No: Guarding, Rigid, Rebound (Male) Exam: Deferred Back Exam: Normal Inspection Extremities: Normal Inspection, Pedal Edema Skin: Warm, Dry, Intact Neurological: No New Focal Deficit Psy/Mental Status: Alert, Normal Affect, Normal Mood Sepsis Event Note - Evaluation Sepsis Screening Result: No Definite Risk - Focused Exam Vital Signs: Vital Signs Temp Pulse Pulse Resp BP BP Pulse Ox 11/05/19 08:36 117/61 11/05/19 08:35 76 117/61 11/05/19 07:41 36.7 C 76 18 117/61 93 L Date Exam was Performed: 11/05/19 Time Exam was Performed: 11:04 - Problem List & Annotations (1) Hypertension SNOMED Code(s): 38986708 Code(s): I10 - ESSENTIAL (PRIMARY) HYPERTENSION Status: Acute Current Visit: Yes (2) Atrial fibrillation SNOMED Code(s): 05806424 Code(s): I48.91 - UNSPECIFIED ATRIAL FIBRILLATION Status: Acute Current Visit: No Qualifiers: Atrial fibrillation type: chronic (3) Leg edema SNOMED Code(s): 226284711 Code(s): R60.0 - LOCALIZED EDEMA Status: Acute Current Visit: No - Problem List Review Problem List Initiated/Reviewed/Updated: Yes - My Orders Last 24 Hours: My Active Orders 11/07/19 06:00 INR,PT,PROTHROMBIN TIME [COAG] DAILY 11/08/19 06:00 INR,PT,PROTHROMBIN TIME [COAG] DAILY 11/09/19 06:00 INR,PT,PROTHROMBIN TIME [COAG] DAILY 11/10/19 06:00 INR,PT,PROTHROMBIN TIME [COAG] DAILY 11/11/19 06:00 INR,PT,PROTHROMBIN TIME [COAG] DAILY 11/12/19 06:00 INR,PT,PROTHROMBIN TIME [COAG] DAILY 11/04/19 15:42 Patient Status [ADT] Routine Ambulate [RC] ASDIRECTED Up With Assistance [RC] ASDIRECTED Up ad [place]oisa [RC] ASDIRECTED Up to Chair [RC] ASDIRECTED Vital Signs [RC] 00,04,08,12,16,20 DVT/VTE Prophylaxis Reflex [OM.PC] Routine Resuscitation Status Routine 11/04/19 15:43 Oxygen Therapy [RC] .PRN Pulse Oximetry [RC] .PRN 11/04/19 15:44 Antiembolic Devices [RC] 09,21 VTE/DVT Education [RC] PER UNIT ROUTINE Antiembolic Hose [OM.PC] Per Unit Routine 11/04/19 15:53 Blood Glucose Check, Bedside [RC] QIDACANDBED 11/04/19 16:00 Pharmacy to Dose - Warfarin 1 dose .XX ASDIRECTED 11/04/19 17:57 Albuterol [Proventil HFA] 0 gm INH BID PRN 11/04/19 18:00 Insulin Lispro [HumaLOG] See Protocol SUBCUT WITHMEALSANDBED Potassium Chloride [Klor-Con 10] 30 meq PO BIDMEALS metFORMIN [Glucophage] 500 mg PO BIDMEALS 11/04/19 20:45 dexAMETHasone [Decadron 0.1% Ophth Soln] 0 ml EYELF DAILY 11/04/19 21:00 Docusate Sodium [Colace] 100 mg PO BID Latanoprost [Xalatan 0.005% Ophth Soln] 0 ml EYELF BEDTIME Metoprolol Succinate [Toprol XL] 50 mg PO BID Mometasone/Formoterol [Dulera 200-5 MCG] 2 puff IH BID Pregabalin [Lyrica] 150 mg PO BEDTIME Rosuvastatin [Crestor] 10 mg PO BEDTIME Sertraline [Zoloft] 75 mg PO BEDTIME allopurinoL [Zyloprim] 100 mg PO TID 11/04/19 Dinner Consistent Carbohydrate Diet [DIET] 11/05/19 06:00 Pantoprazole [ProTONIX] 40 mg PO ACBREAKFAST 11/05/19 08:00 Furosemide [Lasix] 60 mg IVPUSH BID@0800,1400 11/05/19 09:00 Aspirin [Halfprin] 81 mg PO DAILY Carboxymethylcellulose Sodium [Refresh Celluvisc] 0 each EYELF BID Losartan [Cozaar] 25 mg PO DAILY Timolol Maleate [Timoptic 0.5% Ophth Soln] 0 ml EYELF DAILY metOLazone [Zaroxolyn] 2.5 mg PO DAILY 11/05/19 14:00 Warfarin [Coumadin] 6 mg PO ONETIME ONE 11/06/19 06:00 INR,PT,PROTHROMBIN TIME [COAG] DAILY - Plan Plan:: This is a 69 Y/O M with past Medical history of Hypertension, Diabetes, A-Fib, COPD, GERD, S/P right total hip arthoplasty by Dr Santana on 10/18/19. Pt presented to ER with complain of weakness and swelling of Rt LE. He has Rt LE little more swollen than Left LE and it is secondary to Rt YESSY. He says he chronically use tight stockings but not able to use it because swelling is more. He is able to walk with walker and he will have follow up with Dr. Santana in Nov, and at that time he is going to recommend Physical therapy. Impression and Plan: 1. Edema of Extremities: He has significant fluid retention to B/L LE, with Right >left -Will continue lasix at 60 mg IV X BID -Continue I/O recording -Continue to use tight stockings 2. Hypertension: Acceptable and will Continue Metoprolol 50 mg BID 3. Weakness: S/P Right YESSY and he will need follow up with Dr. Santana and he will recommend when to start PT/OT, without his approval will not start PT/OT, he has appointment in November 13, 2019 with him and at that time he will recommend when to start PT/OT -Today I called his office if they want him to get started with PT/OT, if the office says OK to start then will start PT/OT otherwise he needs to see Dr. Santana 4. A-Fib- rate controlled and continue chronic anti-coagulation with Coumadin 5. Diabetes II ( Non-Insulin Dependent): He is on Metformin 500 mg BID -Will check BS 4 times a day -Will cover with sliding scale coverage with Insulin 6. Hypokalemia: This is secondary to diuresis and will continue potassium chloride at 30 meq BID and will give an extra dose of 20 meq X 1 -Recheck potassium in AM DVT Prophylaxis: He is on anticoagulation ( Coumadin) Code Status: He is FULL CODE
[2019-11-05] MEDS ORDERED: Warfarin 2 MG Tab PO ONE (14:00)
[2019-11-05] MEDS ORDERED: Warfarin 2 MG Tab PO SCH (18:00)
[2019-11-05] MEDS: Sertraline 50 MG Tab PO SCH (22:02)
[2019-11-05] MEDS: Rosuvastatin 10 MG Tab PO SCH (22:03)
[2019-11-05] MEDS: Latanoprost 0.005% Ophth Soln 2.5 ML Bottle EYELF SCH (22:09)
[2019-11-05] MEDS: Sodium Chloride 0.9% 10 ML Syringe FLUSH PRN (22:25)
[2019-11-06] MEDS: Pantoprazole 40 MG Tab.CR PO SCH (05:52)
[2019-11-06 07:04] LABS: ANION GAP 17.9; CHLORIDE,CL 92 mmol/L (101-111); SODIUM,NA 136 mmol/L (135-145)
[2019-11-06] MEDS: Metoprolol Succinate 50 MG Tab.ER PO SCH ×2 (09:07→20:44)
[2019-11-06] MEDS: Metolazone 2.5 MG Tab PO SCH (09:08)
[2019-11-06] MEDS: Losartan 25 MG Tab PO SCH (09:08)
[2019-11-06] MEDS: metFORMIN 500 MG Tab PO SCH ×2 (09:08→17:08)
[2019-11-06] MEDS: Aspirin 81 MG Tab.EC PO SCH (09:08)
[2019-11-06] MEDS: Allopurinol 100 MG Tab PO SCH ×3 (09:09→20:44)
[2019-11-06] MEDS: Timolol Maleate 0.5% Ophth Soln 5 ML Bottle EYELF SCH (09:09)
[2019-11-06] MEDS: Docusate Sodium 100 MG Cap PO SCH ×2 (09:09→20:45)
[2019-11-06] MEDS ORDERED: Sodium Chloride 0.9% 10 ML Syringe FLUSH PRN (09:10)
[2019-11-06] MEDS: DEXAMETHASONE 0.1% EYELF SCH (09:10)
[2019-11-06] MEDS: Insulin Lispro 100 Units/ML 3 ML Vial SUBCUT SCH ×4 (09:11→20:56)
[2019-11-06] MEDS: Formoterol/Mometasone 200-5 MCG 8.8 GM Inhaler IH SCH ×2 (09:12→20:45)
[2019-11-06] MEDS: Furosemide 40 MG/4 ML VIAL IVPUSH SCH ×2 (09:12→13:31)
[2019-11-06] MEDS ORDERED: Potassium Chloride 10 MEQ Tab.ER PO ONE (09:15)
[2019-11-06] MEDS: Carboxymethylcellulose Sodium 1% Ophth Gel 0.4 ML UD EYELF SCH ×2 (09:50→20:53)
[2019-11-06] MEDS: Potassium Chloride 10 MEQ Tab.ER PO SCH ×3 (10:52→17:08)
--- NOTE | 2019-11-06 12:19 | PCM.PN ---
- General Info Date of Service: 11/06/19 Admission Dx/Problem (Free Text): Admission Diagnosis/Problem Admission Diagnosis/Problem Lymphedema and weight gain Subjective Update: Pt was seen in room, doing well, No nausea or Vomiting, No fever or Chill, appetite is good and responding to diuretics and losing weight. He will be seen by PT/OT today Functional Status: Reports: Pain Controlled, Tolerating Diet, Ambulating, Urinating - Review of Systems General: Reports: Weakness, Appetite (good). Denies: Fever, Chills HEENT: Denies: Dysphasia, Headaches, Sinus Congestion, Sore Throat, Visual Changes Pulmonary: Denies: Shortness of Breath, Cough, Sputum, Wheezing Cardiovascular: Reports: Edema. Denies: Chest Pain, Dyspnea on Exertion, Lightheadedness Gastrointestinal: Denies: Abdominal Pain, Diarrhea, Nausea, Vomiting Genitourinary: Denies: Dysuria, Burning, Urgency, Flank Pain Musculoskeletal: Denies: Neck Pain, Hand Pain, Foot Pain, Joint Pain Skin: Denies: Cyanosis, Jaundice, Bruising, Pruritis, Rash Neurological: Denies: Confusion, Numbness, Tremors Psychiatric: Reports: No Symptoms - Patient Data Vitals - Most Recent: Last Vital Signs Temp 36.0 C 11/06/19 08:03 Pulse 80 11/06/19 09:07 Resp 20 11/06/19 08:03 BP 100/56 L 11/06/19 09:08 Pulse Ox 94 L 11/06/19 08:03 Weight - Most Recent: 138.527 kg I&O - Last 24 Hours: Intake & Output 11/05/19 11/06/19 11/06/19 22:59 06:59 14:59 Intake Total 440 Output Total 400 Balance -400 440 Lab Results Last 24 Hours: Laboratory Results - last 24 hr 11/05/19 11/05/19 11/06/19 Range/Units 17:04 21:03 05:30 PT 14.5 H (9.0-12.0) SEC INR 1.4 H (0.9-1.2) Sodium (135-145) mmol/L Potassium (3.6-5.0) mmol/L Chloride (101-111) mmol/L Carbon Dioxide (21.0-31.0) mmol/L Anion Gap BUN (7-18) mg/dL Creatinine (0.6-1.3) mg/dL Est Cr Clr Drug Dosing mL/min Estimated GFR (MDRD) Glucose (74-105) mg/dL POC Glucose 110 H 104 (70-105) mg/dl Calcium (8.4-10.2) mg/dl 11/06/19 11/06/19 11/06/19 Range/Units 05:30 07:44 11:24 PT (9.0-12.0) SEC INR (0.9-1.2) Sodium 136 (135-145) mmol/L Potassium 2.9 L (3.6-5.0) mmol/L Chloride 92 L (101-111) mmol/L Carbon Dioxide 29.0 (21.0-31.0) mmol/L Anion Gap 17.9 BUN 23 H (7-18) mg/dL Creatinine 1.0 (0.6-1.3) mg/dL Est Cr Clr Drug Dosing 78.68 mL/min Estimated GFR (MDRD) > 60 Glucose 114 H (74-105) mg/dL POC Glucose 114 H 117 H (70-105) mg/dl Calcium 8.9 (8.4-10.2) mg/dl Med Orders - Current: Current Medications Albuterol (Proventil Hfa) 0 gm INH BID PRN PRN Reason: Wheezing Allopurinol (Zyloprim) 100 mg PO TID [facility] Last Admin: 11/06/19 09:09 Dose: 100 mg Artificial Tears (Refresh Celluvisc) 0 each EYELF BID [facility] Last Admin: 11/06/19 09:50 Dose: 1 each Aspirin (Halfprin) 81 mg PO DAILY [facility] Last Admin: 11/06/19 09:08 Dose: 81 mg Dexamethasone (Decadron 0.1% [facility]) 0 ml EYELF DAILY [facility] Last Admin: 11/06/19 09:10 Dose: 1 drop Docusate Sodium (Colace) 100 mg PO BID [facility] Last Admin: 11/06/19 09:09 Dose: Not Given Furosemide (Lasix) 60 mg IVPUSH BID@0800,1400 [facility] Last Admin: 11/06/19 09:12 Dose: 60 mg Insulin Human Lispro (Humalog) 0 unit SUBCUT WITHMEALSANDBED [facility]; Protocol Last Admin: 11/06/19 11:27 Dose: Not Given Latanoprost (Xalatan 0.005% Ophth Soln) 0 ml EYELF BEDTIME [facility] Last Admin: 11/05/19 22:09 Dose: 1 drop Losartan Potassium (Cozaar) 25 mg PO DAILY [facility] Last Admin: 11/06/19 09:08 Dose: 25 mg Metformin HCl (Glucophage) 500 mg PO BIDMEALS [facility] Last Admin: 11/06/19 09:08 Dose: 500 mg Metolazone (Zaroxolyn) 2.5 mg PO DAILY [facility] Last Admin: 11/06/19 09:08 Dose: 2.5 mg Metoprolol Succinate (Toprol Xl) 50 mg PO BID [facility] Last Admin: 11/06/19 09:07 Dose: 50 mg Mometasone Furoate/Formoterol Fumar (Dulera 200-5 Mcg) 2 puff IH BID [facility] Last Admin: 11/06/19 09:12 Dose: 2 puff Pantoprazole Sodium (Protonix) 40 mg PO ACBREAKFAST [facility] Last Admin: 11/06/19 05:52 Dose: 40 mg Potassium Chloride (Klor-Con 10) 40 meq PO BIDMEALS [facility] Last Admin: 11/06/19 11:25 Dose: 40 meq Pregabalin (Lyrica) 150 mg PO BEDTIME [facility] Last Admin: 11/05/19 22:04 Dose: 150 mg Rosuvastatin Calcium (Crestor) 10 mg PO BEDTIME [facility] Last Admin: 11/05/19 22:03 Dose: 10 mg Sertraline HCl (Zoloft) 75 mg PO BEDTIME [facility] Last Admin: 11/05/19 22:02 Dose: 75 mg Sodium Chloride (Saline Flush) 10 ml FLUSH ASDIRECTED PRN PRN Reason: Keep Vein Open Timolol Maleate (Timoptic 0.5% Ophth Soln) 0 ml EYELF DAILY [facility] Last Admin: 11/06/19 09:09 Dose: 1 drop Warfarin Sodium (Pharmacy To Dose - Warfarin) 1 dose .XX ASDIRECTED [facility] Warfarin Sodium (Coumadin) 8 mg PO ONETIME ONE Stop: 11/06/19 14:01 Discontinued Medications Dexamethasone (Decadron 0.1% Ophth Soln) 0 ml EYERT BID [facility] Dexamethasone (Decadron 0.1% Ophth Soln) 1 ml EYELF BID [facility] Last Admin: 11/04/19 21:09 Dose: Not Given Furosemide (Lasix) 60 mg IVPUSH NOW ONE Stop: 11/04/19 15:42 Last Admin: 11/04/19 15:53 Dose: 60 mg Non-Formulary Medication (Timolol [Betimol]) 1 drop OP DAILY [facility] Non-Formulary Medication (Carboxymethylcellulose Sodium) 15 ml EYELF BID [facility] Potassium Chloride (Klor-Con 10) 30 meq PO BIDMEALS [facility] Last Admin: 11/06/19 10:52 Dose: Not Given Potassium Chloride (Klor-Con 10) 40 meq PO ONETIME ONE Stop: 11/04/19 15:56 Last Admin: 11/04/19 17:04 Dose: 40 meq Potassium Chloride (Klor-Con 10) 20 meq PO ONETIME ONE Stop: 11/05/19 10:01 Last Admin: 11/05/19 12:21 Dose: 20 meq Potassium Chloride (Klor-Con 10) 40 meq PO BIDMEALS [facility] Potassium Chloride (Klor-Con 10) 40 meq PO ONETIME ONE Stop: 11/06/19 09:16 Last Admin: 11/06/19 09:51 Dose: 40 meq Sodium Chloride (Saline Flush) 10 ml FLUSH ASDIRECTED PRN PRN Reason: Keep Vein Open Last Admin: 11/05/19 22:25 Dose: 10 ml Warfarin Sodium (Coumadin) 6 mg PO DAILY@1800 [facility] Warfarin Sodium (Coumadin) 6 mg PO ONETIME ONE Stop: 11/05/19 14:01 Last Admin: 11/05/19 14:06 Dose: 6 mg - Exam Quality Assessment: DVT Prophylaxis. No: Supplemental Oxygen, Central Line/PICC , Urine Catheter General: Alert, Oriented, Cooperative, No Acute Distress HEENT: Pupils Equal, Mucous Membr. Moist/[place] Neck: Supple, No JVD, No Thyromegaly Lungs: Clear to Auscultation, Normal Respiratory Effort Cardiovascular: Regular Rate, Regular Rhythm, No Murmurs GI/Abdominal Exam: Normal Bowel Sounds, Soft, Non-Tender, No Distention. No: Rigid, Rebound (Male) Exam: Deferred Back Exam: Normal Inspection, Full Range of Motion Extremities: Normal Inspection, Pedal Edema Skin: Warm, Dry, Intact Neurological: No New Focal Deficit Psy/Mental Status: Alert, Normal Affect, Normal Mood Sepsis Event Note - Evaluation Sepsis Screening Result: No Definite Risk - Focused Exam Vital Signs: Vital Signs Temp Pulse Pulse Resp BP BP BP 11/06/19 09:08 100/56 L 11/06/19 09:07 80 100/56 L 11/06/19 08:03 36.0 C 80 20 100/56 L 11/06/19 00:59 36.1 C 89 20 111/61 Pulse Ox 11/06/19 09:08 11/06/19 09:07 11/06/19 08:03 94 L 11/06/19 00:59 95 Date Exam was Performed: 11/06/19 Time Exam was Performed: 13:00 - Problem List & Annotations (1) Hypertension SNOMED Code(s): 37425967 Code(s): I10 - ESSENTIAL (PRIMARY) HYPERTENSION Status: Acute Current Visit: Yes (2) Atrial fibrillation SNOMED Code(s): 86841539 Code(s): I48.91 - UNSPECIFIED ATRIAL FIBRILLATION Status: Acute Current Visit: No Qualifiers: Atrial fibrillation type: chronic (3) Leg edema SNOMED Code(s): 622560181 Code(s): R60.0 - LOCALIZED EDEMA Status: Acute Current Visit: No - Problem List Review Problem List Initiated/Reviewed/Updated: Yes - My Orders Last 24 Hours: My Active Orders 11/07/19 06:00 INR,PT,PROTHROMBIN TIME [COAG] DAILY 11/08/19 06:00 INR,PT,PROTHROMBIN TIME [COAG] DAILY 11/09/19 06:00 INR,PT,PROTHROMBIN TIME [COAG] DAILY 11/10/19 06:00 INR,PT,PROTHROMBIN TIME [COAG] DAILY 11/11/19 06:00 INR,PT,PROTHROMBIN TIME [COAG] DAILY 11/12/19 06:00 INR,PT,PROTHROMBIN TIME [COAG] DAILY 11/06/19 09:10 Sodium Chloride 0.9% [Saline Flush] 10 ml FLUSH ASDIRECTED PRN 11/06/19 09:26 PT Evaluation and Treatment [CONS] Routine 11/06/19 09:36 OT Evaluation and Treatment [CONS] Routine 11/06/19 10:00 Potassium Chloride [Klor-Con 10] 40 meq PO BIDMEALS 11/06/19 14:00 Warfarin [Coumadin] 8 mg PO ONETIME ONE - Plan Plan:: This is a 69 Y/O M with past Medical history of Hypertension, Diabetes, A-Fib, COPD, GERD, S/P right total hip arthoplasty by Dr Santana on 10/18/19. Pt presented to ER with complain of weakness and swelling of Rt LE. He has Rt LE little more swollen than Left LE and it is secondary to Rt YESSY. He says he chronically use tight stockings but not able to use it because swelling is more. He is able to walk with walker and he will have follow up with Dr. Santana in Nov, and at that time he is going to recommend Physical therapy. Impression and Plan: 1. Edema of Extremities: He has significant fluid retention to B/L LE, with Right >left -Will continue lasix at 40 mg PO BID [ will stop lasix 60 mg IV BID] -Continue I/O recording -Continue to use tight stockings 2. Hypertension: Acceptable and will Continue Metoprolol 50 mg BID 3. Weakness: S/P Right YESSY and he will need follow up with Dr. Santana and he will recommend when to start PT/OT, without his approval will not start PT/OT, he has appointment in November 13, 2019 with him and at that time he will recommend when to start PT/OT -Today I got the call back from Dr. Santana office ( Person called: Luz Elena Alvarez) and stated he can have PT/OT evaluation , I have placed the consult for PT/OT evaluation and will follow the recommendation, he will see Dr. Santana on Nov 13, 2019 and will decision will be made about the extent of PT/OT he needs 4. A-Fib- rate controlled and continue chronic anti-coagulation with Coumadin 5. Diabetes II ( Non-Insulin Dependent): He is on Metformin 500 mg BID -Will check BS 4 times a day -Will cover with sliding scale coverage with Insulin 6. Hypokalemia: This is secondary to diuresis and will change potassium chloride to 40 meq BID [ was at 30 meq BID] and will give an extra dose of 40 meq X 1 -Recheck potassium in AM DVT Prophylaxis: He is on anticoagulation ( Coumadin) Code Status: He is FULL CODE
[2019-11-06] MEDS ORDERED: Warfarin 2 MG Tab PO ONE (14:00)
--- NOTE | 2019-11-06 14:01 | PCM.PN ---
- General Info Date of Service: 11/06/19 Admission Dx/Problem (Free Text): Admission Diagnosis/Problem Admission Diagnosis/Problem Lymphedema and weight gain Subjective Update: Pt was seen in room, doing well, No nausea or Vomiting, No fever or Chill, appetite is good and responding to diuretics and losing weight. He will be seen by PT/OT today Functional Status: Reports: Pain Controlled, Tolerating Diet, Ambulating, Urinating - Review of Systems General: Reports: Appetite (good). Denies: Fever, Weakness, Chills HEENT: Denies: Eye Pain, Post Nasal Drip, Sinus Congestion, Sore Throat, Rhinitis, Visual Changes Pulmonary: Denies: Shortness of Breath, Pleuritic Chest Pain, Cough, Sputum, Wheezing Cardiovascular: Reports: Edema. Denies: Chest Pain, Dyspnea on Exertion, Lightheadedness Gastrointestinal: Denies: Abdominal Pain, Constipation, Diarrhea, Nausea, Vomiting Genitourinary: Denies: Dysuria, Frequency, Burning, Urgency, Flank Pain Musculoskeletal: Reports: Other (Rt hip pain). Denies: Neck Pain, Hand Pain, Joint Swelling Skin: Denies: Cyanosis, Jaundice, Diaphoresis, Bruising, Pruritis, Rash Neurological: Denies: Confusion, Numbness, Paresthesia, Tingling, Tremors Psychiatric: Reports: No Symptoms - Patient Data Vitals - Most Recent: Last Vital Signs Temp 36.2 C 11/06/19 12:00 Pulse 81 11/06/19 12:00 Resp 20 11/06/19 12:00 BP 104/58 L 11/06/19 12:00 Pulse Ox 95 11/06/19 12:00 Weight - Most Recent: 138.527 kg I&O - Last 24 Hours: Intake & Output 11/05/19 11/06/19 11/06/19 22:59 06:59 14:59 Intake Total 640 Output Total 400 Balance -400 640 Lab Results Last 24 Hours: Laboratory Results - last 24 hr 11/05/19 11/05/19 11/06/19 Range/Units 17:04 21:03 05:30 PT 14.5 H (9.0-12.0) SEC INR 1.4 H (0.9-1.2) Sodium (135-145) mmol/L Potassium (3.6-5.0) mmol/L Chloride (101-111) mmol/L Carbon Dioxide (21.0-31.0) mmol/L Anion Gap BUN (7-18) mg/dL Creatinine (0.6-1.3) mg/dL Est Cr Clr Drug Dosing mL/min Estimated GFR (MDRD) Glucose (74-105) mg/dL POC Glucose 110 H 104 (70-105) mg/dl Calcium (8.4-10.2) mg/dl 11/06/19 11/06/19 11/06/19 Range/Units 05:30 07:44 11:24 PT (9.0-12.0) SEC INR (0.9-1.2) Sodium 136 (135-145) mmol/L Potassium 2.9 L (3.6-5.0) mmol/L Chloride 92 L (101-111) mmol/L Carbon Dioxide 29.0 (21.0-31.0) mmol/L Anion Gap 17.9 BUN 23 H (7-18) mg/dL Creatinine 1.0 (0.6-1.3) mg/dL Est Cr Clr Drug Dosing 78.68 mL/min Estimated GFR (MDRD) > 60 Glucose 114 H (74-105) mg/dL POC Glucose 114 H 117 H (70-105) mg/dl Calcium 8.9 (8.4-10.2) mg/dl Med Orders - Current: Current Medications Albuterol (Proventil Hfa) 0 gm INH BID PRN PRN Reason: Wheezing Allopurinol (Zyloprim) 100 mg PO TID [facility] Last Admin: 11/06/19 13:30 Dose: 100 mg Artificial Tears (Refresh Celluvisc) 0 each EYELF BID [facility] Last Admin: 11/06/19 09:50 Dose: 1 each Aspirin (Halfprin) 81 mg PO DAILY [facility] Last Admin: 11/06/19 09:08 Dose: 81 mg Dexamethasone (Decadron 0.1% Ophth Soln) 0 ml EYELF DAILY [facility] Last Admin: 11/06/19 09:10 Dose: 1 drop Docusate Sodium (Colace) 100 mg PO BID [facility] Last Admin: 11/06/19 09:09 Dose: Not Given Furosemide (Lasix) 60 mg IVPUSH BID@0800,1400 [facility] Last Admin: 11/06/19 13:31 Dose: 60 mg Insulin Human Lispro (Humalog) 0 unit SUBCUT WITHMEALSANDBED [facility]; Protocol Last Admin: 11/06/19 11:27 Dose: Not Given Latanoprost (Xalatan 0.005% Ophth Soln) 0 ml EYELF BEDTIME [facility] Last Admin: 11/05/19 22:09 Dose: 1 drop Losartan Potassium (Cozaar) 25 mg PO DAILY [facility] Last Admin: 11/06/19 09:08 Dose: 25 mg Metformin HCl (Glucophage) 500 mg PO BIDMEALS [facility] Last Admin: 11/06/19 09:08 Dose: 500 mg Metolazone (Zaroxolyn) 2.5 mg PO DAILY [facility] Last Admin: 11/06/19 09:08 Dose: 2.5 mg Metoprolol Succinate (Toprol Xl) 50 mg PO BID [facility] Last Admin: 11/06/19 09:07 Dose: 50 mg Mometasone Furoate/Formoterol Fumar (Dulera 200-5 Mcg) 2 puff IH BID [facility] Last Admin: 11/06/19 09:12 Dose: 2 puff Pantoprazole Sodium (Protonix) 40 mg PO ACBREAKFAST [facility] Last Admin: 11/06/19 05:52 Dose: 40 mg Potassium Chloride (Klor-Con 10) 40 meq PO BIDMEALS [facility] Last Admin: 11/06/19 11:25 Dose: 40 meq Pregabalin (Lyrica) 150 mg PO BEDTIME [facility] Last Admin: 11/05/19 22:04 Dose: 150 mg Rosuvastatin Calcium (Crestor) 10 mg PO BEDTIME [facility] Last Admin: 11/05/19 22:03 Dose: 10 mg Sertraline HCl (Zoloft) 75 mg PO BEDTIME [facility] Last Admin: 11/05/19 22:02 Dose: 75 mg Sodium Chloride (Saline Flush) 10 ml FLUSH ASDIRECTED PRN PRN Reason: Keep Vein Open Timolol Maleate (Timoptic 0.5% Ophth Soln) 0 ml EYELF DAILY [facility] Last Admin: 11/06/19 09:09 Dose: 1 drop Warfarin Sodium (Pharmacy To Dose - Warfarin) 1 dose .XX ASDIRECTED [facility] Warfarin Sodium (Coumadin) 8 mg PO ONETIME ONE Stop: 11/06/19 14:01 Last Admin: 11/06/19 13:30 Dose: 8 mg Discontinued Medications Dexamethasone (Decadron 0.1% Ophth Soln) 0 ml EYERT BID [facility] Dexamethasone (Decadron 0.1% Ophth Soln) 1 ml EYELF BID [facility] Last Admin: 11/04/19 21:09 Dose: Not Given Furosemide (Lasix) 60 mg IVPUSH NOW ONE Stop: 11/04/19 15:42 Last Admin: 11/04/19 15:53 Dose: 60 mg Non-Formulary Medication (Timolol [Betimol]) 1 drop OP DAILY [facility] Non-Formulary Medication (Carboxymethylcellulose Sodium) 15 ml EYELF BID [facility] Potassium Chloride (Klor-Con 10) 30 meq PO BIDMEALS [facility] Last Admin: 11/06/19 10:52 Dose: Not Given Potassium Chloride (Klor-Con 10) 40 meq PO ONETIME ONE Stop: 11/04/19 15:56 Last Admin: 11/04/19 17:04 Dose: 40 meq Potassium Chloride (Klor-Con 10) 20 meq PO ONETIME ONE Stop: 11/05/19 10:01 Last Admin: 11/05/19 12:21 Dose: 20 meq Potassium Chloride (Klor-Con 10) 40 meq PO BIDMEALS [facility] Potassium Chloride (Klor-Con 10) 40 meq PO ONETIME ONE Stop: 11/06/19 09:16 Last Admin: 11/06/19 09:51 Dose: 40 meq Sodium Chloride (Saline Flush) 10 ml FLUSH ASDIRECTED PRN PRN Reason: Keep Vein Open Last Admin: 11/05/19 22:25 Dose: 10 ml Warfarin Sodium (Coumadin) 6 mg PO DAILY@1800 [facility] Warfarin Sodium (Coumadin) 6 mg PO ONETIME ONE Stop: 11/05/19 14:01 Last Admin: 11/05/19 14:06 Dose: 6 mg - Exam Quality Assessment: DVT Prophylaxis. No: Supplemental Oxygen, Central Line/PICC , Urine Catheter General: Alert, Oriented, Cooperative, No Acute Distress HEENT: Pupils Equal, EOMI, Mucous Membr. Moist/[place] Neck: No JVD, No Thyromegaly. No: Lymphadenopathy Lungs: Clear to Auscultation, Normal Respiratory Effort. No: Crackles, Wheezing Cardiovascular: Regular Rate, Regular Rhythm, Murmurs GI/Abdominal Exam: Normal Bowel Sounds, Non-Tender, No Organomegaly, No Distention (Male) Exam: Deferred Back Exam: Normal Inspection, Full Range of Motion Extremities: Normal Inspection, Pedal Edema Skin: Warm, Dry, Intact Neurological: No New Focal Deficit Psy/Mental Status: Alert, Normal Affect, Normal Mood Sepsis Event Note - Evaluation Sepsis Screening Result: No Definite Risk - Focused Exam Vital Signs: Vital Signs Temp Pulse Pulse Resp BP BP Pulse Ox 11/06/19 12:00 36.2 C 81 20 104/58 L 95 11/06/19 09:08 100/56 L 11/06/19 09:07 80 100/56 L 11/06/19 08:03 36.0 C 80 20 100/56 L 94 L Date Exam was Performed: 11/06/19 Time Exam was Performed: 14:03 - Problem List & Annotations (1) Hypertension SNOMED Code(s): 88181293 Code(s): I10 - ESSENTIAL (PRIMARY) HYPERTENSION Status: Acute Current Visit: Yes (2) Atrial fibrillation SNOMED Code(s): 54860864 Code(s): I48.91 - UNSPECIFIED ATRIAL FIBRILLATION Status: Acute Current Visit: No Qualifiers: Atrial fibrillation type: chronic (3) Leg edema SNOMED Code(s): 706298823 Code(s): R60.0 - LOCALIZED EDEMA Status: Acute Current Visit: No - Problem List Review Problem List Initiated/Reviewed/Updated: Yes - My Orders Last 24 Hours: My Active Orders 11/07/19 06:00 INR,PT,PROTHROMBIN TIME [COAG] DAILY 11/08/19 06:00 INR,PT,PROTHROMBIN TIME [COAG] DAILY 11/09/19 06:00 INR,PT,PROTHROMBIN TIME [COAG] DAILY 11/10/19 06:00 INR,PT,PROTHROMBIN TIME [COAG] DAILY 11/11/19 06:00 INR,PT,PROTHROMBIN TIME [COAG] DAILY 11/12/19 06:00 INR,PT,PROTHROMBIN TIME [COAG] DAILY 11/06/19 09:10 Sodium Chloride 0.9% [Saline Flush] 10 ml FLUSH ASDIRECTED PRN 11/06/19 09:26 PT Evaluation and Treatment [CONS] Routine 11/06/19 09:36 OT Evaluation and Treatment [CONS] Routine 11/06/19 10:00 Potassium Chloride [Klor-Con 10] 40 meq PO BIDMEALS 11/06/19 14:00 Warfarin [Coumadin] 8 mg PO ONETIME ONE - Plan Plan:: This is a 69 Y/O M with past Medical history of Hypertension, Diabetes, A-Fib, COPD, GERD, S/P right total hip arthoplasty by Dr Santana on 10/18/19. Pt presented to ER with complain of weakness and swelling of Rt LE. He has Rt LE little more swollen than Left LE and it is secondary to Rt YESSY. He says he chronically use tight stockings but not able to use it because swelling is more. He is able to walk with walker and he will have follow up with Dr. Santana in Nov, and at that time he is going to recommend Physical therapy. Impression and Plan: 1. Edema of Extremities: He has significant fluid retention to B/L LE, with Right >left -Will change lasix to 40 mg BID [ was at 60 mg IV X BID] -Continue I/O recording -Continue to use tight stockings -Will likely be able to go home tomorrow 2. Hypertension: Acceptable and will Continue Metoprolol 50 mg BID 3. Weakness: S/P Right YESSY and he will need follow up with Dr. Santana and he will recommend when to start PT/OT, without his approval will not start PT/OT, he has appointment in November 13, 2019 with him and at that time he will recommend when to start PT/OT -Today I got call back from Dr. Santana's by and the rerson called ( Kim Laguna) and said we can have PT/OT evaluation and he will be seen in clinic and after that the recommendation will be given to pt about the extent of PT/OT -He will be seen today by PT/OT and will go home tomorrow 4. A-Fib- rate controlled and continue chronic anti-coagulation with Coumadin and pharmacy is adjusting the dose of Coumadin 5. Diabetes II ( Non-Insulin Dependent): He is on Metformin 500 mg BID -Will check BS 4 times a day -Will cover with sliding scale coverage with Insulin 6. Hypokalemia: This is secondary to diuresis and will change potassium chloride to 40 meq BID [ was at 30 meq BID ] and will give an extra dose of 40 meq X 1 -Recheck potassium in AM DVT Prophylaxis: He is on anticoagulation ( Coumadin) Code Status: He is FULL CODE
[2019-11-06] MEDS ORDERED: Furosemide 40 MG Tab PO ONE (14:02)
[2019-11-06] MEDS ORDERED: diphenhydrAMINE 25 MG Tab PO PRN (15:08)
[2019-11-06] MEDS ORDERED: Potassium Chloride 10 MEQ Tab.ER PO SCH (18:00)
[2019-11-06] MEDS: Sertraline 50 MG Tab PO SCH (20:44)
[2019-11-06] MEDS: Rosuvastatin 10 MG Tab PO SCH (20:45)
[2019-11-06] MEDS: Latanoprost 0.005% Ophth Soln 2.5 ML Bottle EYELF SCH (20:46)
[2019-11-07] MEDS: Pantoprazole 40 MG Tab.CR PO SCH (05:54)
[2019-11-07] MEDS: Insulin Lispro 100 Units/ML 3 ML Vial SUBCUT SCH ×2 (08:00→11:44)
[2019-11-07] MEDS: Losartan 25 MG Tab PO SCH (08:14)
[2019-11-07] MEDS: Allopurinol 100 MG Tab PO SCH ×2 (08:14→14:08)
[2019-11-07] MEDS: Metoprolol Succinate 50 MG Tab.ER PO SCH (08:14)
[2019-11-07] MEDS: Aspirin 81 MG Tab.EC PO SCH (08:14)
[2019-11-07] MEDS: Potassium Chloride 10 MEQ Tab.ER PO SCH (08:15)
[2019-11-07] MEDS: Metolazone 2.5 MG Tab PO SCH (08:15)
[2019-11-07] MEDS: metFORMIN 500 MG Tab PO SCH (08:15)
[2019-11-07] MEDS: DEXAMETHASONE 0.1% EYELF SCH (08:18)
[2019-11-07] MEDS: Formoterol/Mometasone 200-5 MCG 8.8 GM Inhaler IH SCH (08:19)
[2019-11-07] MEDS: Timolol Maleate 0.5% Ophth Soln 5 ML Bottle EYELF SCH (08:19)
[2019-11-07] MEDS: Carboxymethylcellulose Sodium 1% Ophth Gel 0.4 ML UD EYELF SCH (08:20)
[2019-11-07] MEDS: Docusate Sodium 100 MG Cap PO SCH (08:21)
[2019-11-07 08:41] LABS: ANION GAP 19.9; CHLORIDE,CL 89 mmol/L (101-111); SODIUM,NA 134 mmol/L (135-145)
[2019-11-07] MEDS ORDERED: Potassium Chloride 10 MEQ Tab.ER PO ONE (08:52)
[2019-11-07] MEDS ORDERED: Potassium Chloride 20 MEQ in Premix Bag 1 BAG IV ONE (08:56)
[2019-11-07] MEDS ORDERED: Furosemide 40 MG Tab PO SCH (09:00)
[2019-11-07] MEDS ORDERED: Sodium Chloride 0.9% 250 ML IV SCH (09:15)
--- NOTE | 2019-11-07 12:09 | PCM.DCSUM1 ---
Discharge Summary - Hospital Course Free Text/Narrative:: This is a 69 Y/O M with past Medical history of Hypertension, Diabetes, A-Fib, COPD, GERD, S/P right total hip arthoplasty by Dr Santana on 10/18/19. Pt presented to ER with complain of weakness and swelling of Rt LE. He has Rt LE little more swollen than Left LE and it is secondary to Rt YESSY. He says he chronically use tight stockings but not able to use it because swelling is more. He is able to walk with walker and he will have follow up with Dr. Santana in Nov, and at that time he is going to recommend Physical therapy. After admission he received IV lasix and also was seen by PT/OT. he will be going home today and will be followed by PMD either on ( 11/08/19) or Tuesday ( 11/09/19) - Discharge Data Discharge Date: 11/07/19 Discharge Disposition: Home, Self-Care 01 Condition: Stable - Referral to Home Health Primary Care Physician: PCP Unobtainable - Discharge Diagnosis/Problem(s) (1) Hypertension SNOMED Code(s): 89990015 ICD Code: I10 - ESSENTIAL (PRIMARY) HYPERTENSION Status: Acute Current Visit: Yes (2) Atrial fibrillation SNOMED Code(s): 79802473 ICD Code: I48.91 - UNSPECIFIED ATRIAL FIBRILLATION Status: Acute Current Visit: No Qualifiers: Atrial fibrillation type: chronic (3) Leg edema SNOMED Code(s): 097046041 ICD Code: R60.0 - LOCALIZED EDEMA Status: Acute Current Visit: No - Patient Summary/Data Consults: Consultations 11/06/19 09:26 PT Evaluation and Treatment [CONS] Routine 11/06/19 09:36 OT Evaluation and Treatment [CONS] Routine - Patient Instructions Diet: Heart Healthy Diet Activity: As Tolerated Showering/Bathing: May Shower Notify Provider of: Fever, Nausea and/or Vomiting Other/Special Instructions: He will be going home today. He will take lasix at 40 mg PO BID and will continue Metolazone at 2.5 mg daily. Advise to see his PMD on ( 11/08/19) or ( 11/09/19), he needs lab before follow up with PMD.He needs to have his INR and potassium recheck on or Tuesday of this week - Discharge Plan Prescriptions/Med Rec: Furosemide [Lasix] 40 mg PO BID #30 tablet Potassium Chloride [Klor-Con 10] 40 meq PO BIDMEALS #40 tab.er Home Medications: Home Meds Aspirin [Halfprin] 81 mg PO DAILY 12/02/13 [History] Metoprolol Succinate [Toprol XL] 50 mg PO BID 12/02/13 [History] Losartan [Cozaar] 25 mg PO DAILY 04/29/15 [History] Sertraline [Zoloft] 75 mg PO BEDTIME 02/19/16 [History] Warfarin Sodium [Jantoven] 6 mg PO DAILY 07/18/16 [History] Albuterol Sulfate [Proair Hfa] 1 puff IH BID PRN 11/04/19 [History] Allopurinol [Zyloprim] 100 mg PO TID 11/04/19 [History] Budesonide/Formoterol Fumarate [Symbicort 160-4.5 Mcg Inhaler] 2 puff IH BID [History] Carboxymethylcellulose Sodium [Refresh Tears] 2 drop EYELF BID 11/04/19 [History ] Docusate Sodium [Colace Clear] 50 mg PO BID 11/04/19 [History] Latanoprost 1 drop EYELF BEDTIME 11/04/19 [History] Pantoprazole [ProTONIX] 40 mg PO DAILY 11/04/19 [History] Pregabalin 150 mg PO QPM 11/04/19 [History] Rosuvastatin [Crestor] 10 mg PO BEDTIME 11/04/19 [History] Timolol Maleate [Timoptic 0.5% Ophth Soln] 1 drop EYELF DAILY 11/04/19 [History] dexAMETHasone [Decadron 0.1% Ophth Soln] 1 drop EYELF DAILY 11/04/19 [History] metFORMIN HCl [Metformin HCl] 500 mg PO BID 11/04/19 [History] metOLazone [Metolazone] 2.5 mg PO DAILY 11/04/19 [History] Carboxymethylcellulose Sodium [Refresh Celluvisc] 0 each EYELF BID cont [Rx] Furosemide [Lasix] 40 mg PO BID #30 tablet 11/07/19 [Rx] Pharmacy to Dose - Warfarin 1 dose .XX ASDIRECTED each 11/07/19 [Rx] Potassium Chloride [Klor-Con 10] 40 meq PO BIDMEALS #40 tab.er 11/07/19 [Rx] Patient Handouts: Furosemide tablets, Potassium chloride tablets, extended- release tablets or capsules, Lymphedema, Total Hip Replacement, Care After, Easy -to-Read - Discharge Summary/Plan Comment DC Time >30 min.: Yes Discharge Summary/Plan Comment: This is a 69 Y/O M with past Medical history of Hypertension, Diabetes, A-Fib, COPD, GERD, S/P right total hip arthoplasty by Dr Santana on 10/18/19. Pt presented to ER with complain of weakness and swelling of Rt LE. He has Rt LE little more swollen than Left LE and it is secondary to Rt YESSY. He says he chronically use tight stockings but not able to use it because swelling is more. He is able to walk with walker and he will have follow up with Dr. Santana in 2019 and at that time he is going to recommend Physical therapy. Impression and Plan: 1. Edema of Extremities: He has significant fluid retention to B/L LE, with Right >left -Will continue lasix at 40 mg PO BID -Continue to use tight stockings -Will likely be able to go home today after potassium re-check 2. Hypertension: Acceptable and will Continue Metoprolol 50 mg BID 3. Weakness: S/P Right YESSY and he will need follow up with Dr. Santana and he will recommend when to start PT/OT, without his approval will not start PT/OT, he has appointment in November 13, 2019 with him and at that time he will recommend when to start PT/OT -Today I got call back from Dr. Santana's by and the rerson called ( Kim Laguna) and said we can have PT/OT evaluation and he will be seen in clinic and after that the recommendation will be given to pt about the extent of PT/OT -He was seen today by PT/OT and can go home and Dr. Rosado will recommend the extent of therapy he needs 4. A-Fib- rate controlled and continue chronic anti-coagulation with Coumadin and pharmacy is adjusting the dose of Coumadin 5. Diabetes II ( Non-Insulin Dependent): He is on Metformin 500 mg BID 6. Hypokalemia: This is secondary to diuresis and will continue potassium chloride at 40 meq BID [ was at 30 meq BID ] -Recheck potassium now and if good he can go home - General Info Admission Dx/Problem (Free Text: Admission Diagnosis/Problem Admission Diagnosis/Problem Lymphedema and weight gain Subjective Update: Pt was seen in room, doing well, No nausea or Vomiting, No fever or Chill, appetite is good and responded to diuretics and losing weight. He was seen by PT/OT and will follow with Dr. Rosado Functional Status: Reports: Pain Controlled, Tolerating Diet, Ambulating, Urinating - Review of Systems General: Reports: Appetite (good). Denies: Fever, Chills HEENT: Denies: Dysphasia, Headaches, Sore Throat, Visual Changes Pulmonary: Denies: Shortness of Breath, Cough, Sputum, Wheezing Cardiovascular: Reports: Edema. Denies: Chest Pain, Dyspnea on Exertion, Lightheadedness Gastrointestinal: Denies: Abdominal Pain, Diarrhea, Nausea, Vomiting Genitourinary: Denies: Dysuria, Frequency, Flank Pain Musculoskeletal: Denies: Neck Pain, Leg Pain, Joint Pain Skin: Denies: Cyanosis, Diaphoresis, Bruising, Pruritis, Rash Neurological: Denies: Confusion, Headache, Numbness, Tremors Psychiatric: Reports: No Symptoms - Patient Data Vitals - Most Recent: Last Vital Signs Temp 36.2 C 11/07/19 08:01 Pulse 97 11/07/19 08:14 Resp 20 11/07/19 08:01 BP 100/62 11/07/19 08:14 Pulse Ox 94 L 11/07/19 08:01 Weight - Most Recent: 136.803 kg I&O - Last 24 hours: Intake & Output 11/06/19 11/07/19 11/07/19 22:59 06:59 14:59 Intake Total 780 300 200 Output Total 400 Balance 780 -100 200 Lab Results - Last 24 hrs: Laboratory Results - last 24 hr 11/06/19 11/06/19 11/07/19 Range/Units 16:49 20:54 06:20 PT (9.0-12.0) SEC INR (0.9-1.2) Sodium 134 L (135-145) mmol/L Potassium 2.9 L (3.6-5.0) mmol/L Chloride 89 L (101-111) mmol/L Carbon Dioxide 28.0 (21.0-31.0) mmol/L Anion Gap 19.9 BUN 26 H (7-18) mg/dL Creatinine 1.2 (0.6-1.3) mg/dL Est Cr Clr Drug Dosing 65.56 mL/min Estimated GFR (MDRD) > 60 Glucose 117 H (74-105) mg/dL POC Glucose 112 H 104 (70-105) mg/dl Calcium 9.1 (8.4-10.2) mg/dl 11/07/19 11/07/19 11/07/19 Range/Units 06:30 07:46 11:18 PT 13.3 H (9.0-12.0) SEC INR 1.3 H (0.9-1.2) Sodium (135-145) mmol/L Potassium (3.6-5.0) mmol/L Chloride (101-111) mmol/L Carbon Dioxide (21.0-31.0) mmol/L Anion Gap BUN (7-18) mg/dL Creatinine (0.6-1.3) mg/dL Est Cr Clr Drug Dosing mL/min Estimated GFR (MDRD) Glucose (74-105) mg/dL POC Glucose 117 H 107 H (70-105) mg/dl Calcium (8.4-10.2) mg/dl Med Orders - Current: Current Medications Albuterol (Proventil Hfa) 0 gm INH BID PRN PRN Reason: Wheezing Allopurinol (Zyloprim) 100 mg PO TID [facility] Last Admin: 11/07/19 08:14 Dose: 100 mg Artificial Tears (Refresh Celluvisc) 0 each EYELF BID [facility] Last Admin: 11/07/19 08:20 Dose: 1 each Aspirin (Halfprin) 81 mg PO DAILY [facility] Last Admin: 11/07/19 08:14 Dose: 81 mg Dexamethasone (Decadron 0.1% Ophth Soln) 0 ml EYELF DAILY [facility] Last Admin: 11/07/19 08:18 Dose: 1 drop Diphenhydramine HCl (Benadryl) 25 mg PO BID PRN PRN Reason: Itching Docusate Sodium (Colace) 100 mg PO BID [facility] Last Admin: 11/07/19 08:21 Dose: Not Given Furosemide (Lasix) 40 mg PO DAILY [facility] Last Admin: 11/07/19 08:14 Dose: 40 mg Sodium Chloride (Normal Saline) 250 mls @ 50 mls/hr IV ASDIRECTED [facility] Last Admin: 11/07/19 09:23 Dose: 50 mls/hr Insulin Human Lispro (Humalog) 0 unit SUBCUT WITHMEALSANDBED [facility]; Protocol Last Admin: 11/07/19 11:44 Dose: Not Given Latanoprost (Xalatan 0.005% Ophth Soln) 0 ml EYELF BEDTIME [facility] Last Admin: 11/06/19 20:46 Dose: 1 drop Losartan Potassium (Cozaar) 25 mg PO DAILY [facility] Last Admin: 11/07/19 08:14 Dose: 25 mg Metformin HCl (Glucophage) 500 mg PO BIDMEALS [facility] Last Admin: 11/07/19 08:15 Dose: 500 mg Metolazone (Zaroxolyn) 2.5 mg PO DAILY [facility] Last Admin: 11/07/19 08:15 Dose: 2.5 mg Metoprolol Succinate (Toprol Xl) 50 mg PO BID [facility] Last Admin: 11/07/19 08:14 Dose: 50 mg Mometasone Furoate/Formoterol Fumar (Dulera 200-5 Mcg) 2 puff IH BID [facility] Last Admin: 11/07/19 08:19 Dose: 2 puff Pantoprazole Sodium (Protonix) 40 mg PO ACBREAKFAST [facility] Last Admin: 11/07/19 05:54 Dose: 40 mg Potassium Chloride (Klor-Con 10) 40 meq PO BIDMEALS [facility] Last Admin: 11/07/19 08:15 Dose: 40 meq Pregabalin (Lyrica) 150 mg PO BEDTIME [facility] Last Admin: 11/06/19 20:44 Dose: 150 mg Rosuvastatin Calcium (Crestor) 10 mg PO BEDTIME [facility] Last Admin: 11/06/19 20:45 Dose: 10 mg Sertraline HCl (Zoloft) 75 mg PO BEDTIME [facility] Last Admin: 11/06/19 20:44 Dose: 75 mg Sodium Chloride (Saline Flush) 10 ml FLUSH ASDIRECTED PRN PRN Reason: Keep Vein Open Timolol Maleate (Timoptic 0.5% Ophth Soln) 0 ml EYELF DAILY [facility] Last Admin: 11/07/19 08:19 Dose: 1 drop Warfarin Sodium (Pharmacy To Dose - Warfarin) 1 dose .XX ASDIRECTED [facility] Warfarin Sodium (Coumadin) 10 mg PO ONETIME ONE Stop: 11/07/19 14:01 Discontinued Medications Dexamethasone (Decadron 0.1% Ophth Soln) 0 ml EYERT BID [facility] Dexamethasone (Decadron 0.1% Ophth Soln) 1 ml EYELF BID [facility] Last Admin: 11/04/19 21:09 Dose: Not Given Furosemide (Lasix) 60 mg IVPUSH NOW ONE Stop: 11/04/19 15:42 Last Admin: 11/04/19 15:53 Dose: 60 mg Furosemide (Lasix) 60 mg IVPUSH BID@0800,1400 JASON Last Admin: 11/06/19 13:31 Dose: 60 mg Furosemide (Lasix) 40 mg PO ONETIME ONE Stop: 11/06/19 14:03 Last Admin: 11/06/19 15:10 Dose: Not Given Potassium Chloride 20 meq/ (Premix) 100 mls @ 50 mls/hr IV ONETIME ONE Stop: 11/07/19 10:55 Last Admin: 11/07/19 09:24 Dose: 50 mls/hr Non-Formulary Medication (Timolol [Betimol]) 1 drop OP DAILY [facility] Non-Formulary Medication (Carboxymethylcellulose Sodium) 15 ml EYELF BID [facility] Potassium Chloride (Klor-Con 10) 30 meq PO BIDMEALS [facility] Last Admin: 11/06/19 10:52 Dose: Not Given Potassium Chloride (Klor-Con 10) 40 meq PO ONETIME ONE Stop: 11/04/19 15:56 Last Admin: 11/04/19 17:04 Dose: 40 meq Potassium Chloride (Klor-Con 10) 20 meq PO ONETIME ONE Stop: 11/05/19 10:01 Last Admin: 11/05/19 12:21 Dose: 20 meq Potassium Chloride (Klor-Con 10) 40 meq PO BIDMEALS [facility] Potassium Chloride (Klor-Con 10) 40 meq PO ONETIME ONE Stop: 11/06/19 09:16 Last Admin: 11/06/19 09:51 Dose: 40 meq Potassium Chloride (Klor-Con 10) 40 meq PO ONETIME ONE Stop: 11/07/19 08:53 Sodium Chloride (Saline Flush) 10 ml FLUSH ASDIRECTED PRN PRN Reason: Keep Vein Open Last Admin: 11/05/19 22:25 Dose: 10 ml Warfarin Sodium (Coumadin) 6 mg PO DAILY@1800 JASON Warfarin Sodium (Coumadin) 6 mg PO ONETIME ONE Stop: 11/05/19 14:01 Last Admin: 11/05/19 14:06 Dose: 6 mg Warfarin Sodium (Coumadin) 8 mg PO ONETIME ONE Stop: 11/06/19 14:01 Last Admin: 11/06/19 13:30 Dose: 8 mg - Exam Quality Assessment: Reports: DVT Prophylaxis. Denies: Supplemental Oxygen, Central Line/PICC, Urine Catheter General: Reports: Alert, Oriented, Cooperative, No Acute Distress HEENT: Reports: Pupils Equal, Pupils Reactive, EOMI, Mucous Membr. Moist/[place] Neck: Reports: No JVD, No Thyromegaly. Denies: Lymphadenopathy Lungs: Reports: Clear to Auscultation, Normal Respiratory Effort Cardiovascular: Reports: Regular Rate, Regular Rhythm, Murmurs GI/Abdominal Exam: Normal Bowel Sounds, Soft, Non-Tender, No Distention (Male) Exam: Deferred Rectal (Males) Exam: Deferred Back Exam: Reports: Normal Inspection, Full Range of Motion Extremities: Normal Inspection, Pedal Edema Skin: Reports: Warm, Dry, Intact Neurological: Reports: No New Focal Deficit Psy/Mental Status: Reports: Alert, Normal Affect, Normal Mood
[2019-11-07] MEDS: Warfarin 5 MG Tab PO ONE ×2 (12:10→13:29)
[2019-11-07 12:50] VITALS: BP 102/64; PULSE 94
== END 2019-11-07 14:05 | disposition home or self-care (01) | DRG 607 ==
LOC: DL.ED 12:10 → DL.MS 14:25 → UNDOADMIN 14:33 → DL.MS 14:33
PROVIDERS: ADMIT Internal Medicine Nephrology; ATTEND Internal Medicine Nephrology
DX: I89.0 Lymphedema, not elsewhere classified (principal); I48.91 Unspecified atrial fibrillation; I48.20 Chronic atrial fibrillation, unspecified; Z68.41 Body mass index [BMI] 40.0-44.9, adult; I10 Essential (primary) hypertension; J44.9 Chronic obstructive pulmonary disease, unspecified; K21.9 Gastro-esophageal reflux disease without esophagitis; M19.90 Unspecified osteoarthritis, unspecified site; R53.1 Weakness; E87.6 Hypokalemia; E11.9 Type 2 diabetes mellitus without complications; G47.30 Sleep apnea, unspecified; E66.9 Obesity, unspecified; F32.9 Major depressive disorder, single episode, unspecified; Z96.641 Presence of right artificial hip joint; Z79.01 Long term (current) use of anticoagulants; Z79.82 Long term (current) use of aspirin; Z79.899 Other long term (current) drug therapy; Z79.84 Long term (current) use of oral hypoglycemic drugs; Z87.891 Personal history of nicotine dependence; Z28.82 Immunization not carried out because of caregiver refusal
CPT/HCPCS: 36415; 71045; 80048; 80053; 82962; 83880; 84132; 84484; 85025; 85610; 93005; 97161-GP; 99284-25; A9270-GY; J1940; J3480; J7050

== ENCOUNTER 2019-11-29 10:22 | Emergency (ER) | payer MEDICARE, BC ==
[2019-11-29 10:48] VITALS: BP 131/82; PULSE 81
[2019-11-29 12:18] LABS: ANION GAP 15.1; CHLORIDE,CL 102 mmol/L (101-111); SODIUM,NA 140 mmol/L (135-145)
--- NOTE | 2019-11-29 12:28 | EDM.PDOC ---
ED HPI GENERAL MEDICAL PROBLEM - General Chief Complaint: General Stated Complaint: NOT FEELING WELL Time Seen by Provider: 11/29/19 10:48 - History of Present Illness INITIAL COMMENTS - FREE TEXT/NARRATIVE: 69 year old male who presents to the ER with complaints of lower abdominal discomfort x 1 day. He denies any problems with urination. She denies N/V, diarrhea or constipation. Patient is complaining of bodyaches and fatigue. He states he feels like he has been hit by a truck. He denies any cough, sore throat or cold. He has a history of CHF and COPD and admits to having some SOB at baseline which is not worsen from baseline. He admits to fevers/chills one day ago but none today or prior to this visit. Onset: Sudden Duration: Day(s): (one) Location: Reports: Generalized Quality: Reports: Ache Improves with: Reports: None Worsens with: Reports: None Associated Symptoms: Reports: Malaise Treatments [employer]: Reports: Other (see below) (none) Abdomen Pain Score (Numeric/FACES): 1 - Related Data Allergies Allergy/AdvReac Type Severity Reaction Status Date / Time No Known Allergies Allergy Verified 11/29/19 10:48 Home Meds: Home Meds Aspirin [Halfprin] 81 mg PO DAILY 12/02/13 [History] Metoprolol Succinate [Toprol XL] 50 mg PO BID 12/02/13 [History] Losartan [Cozaar] 25 mg PO DAILY 04/29/15 [History] Sertraline [Zoloft] 75 mg PO BEDTIME 02/19/16 [History] Warfarin Sodium [Jantoven] 6 mg PO DAILY 07/18/16 [History] Albuterol Sulfate [Proair Hfa] 1 puff IH BID PRN 11/04/19 [History] Allopurinol [Zyloprim] 100 mg PO TID 11/04/19 [History] Budesonide/Formoterol Fumarate [Symbicort 160-4.5 Mcg Inhaler] 2 puff IH BID [History] Carboxymethylcellulose Sodium [Refresh Tears] 2 drop EYELF BID 11/04/19 [History ] Docusate Sodium [Colace Clear] 50 mg PO BID 11/04/19 [History] Latanoprost 1 drop EYELF BEDTIME 11/04/19 [History] Pantoprazole [ProTONIX] 40 mg PO DAILY 11/04/19 [History] Pregabalin 150 mg PO QPM 11/04/19 [History] Rosuvastatin [Crestor] 10 mg PO BEDTIME 11/04/19 [History] Timolol Maleate [Timoptic 0.5% Ophth Soln] 1 drop EYELF DAILY 11/04/19 [History] dexAMETHasone [Decadron 0.1% Ophth Soln] 1 drop EYELF DAILY 11/04/19 [History] metFORMIN HCl [Metformin HCl] 500 mg PO BID 11/04/19 [History] metOLazone [Metolazone] 2.5 mg PO DAILY 11/04/19 [History] Carboxymethylcellulose Sodium [Refresh Celluvisc] 0 each EYELF BID cont [Rx] Furosemide [Lasix] 40 mg PO BID #30 tablet 11/07/19 [Rx] Pharmacy to Dose - Warfarin 1 dose .XX ASDIRECTED each 11/07/19 [Rx] Potassium Chloride [Klor-Con 10] 40 meq PO BIDMEALS #40 tab.er 11/07/19 [Rx] Past Medical History HEENT History: Reports: Impaired Vision, Other (See Below) Other HEENT History: 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 wears glasses Cardiovascular History: Reports: Afib, SOB on Exertion Other Cardiovascular History: a fib Respiratory History: Reports: COPD, Sleep Apnea, SOB Gastrointestinal History: Reports: GERD, Hemorrhoids Genitourinary History: Reports: None Musculoskeletal History: Reports: Arthritis Neurological History: Reports: None Psychiatric History: Reports: Depression Endocrine/Metabolic History: Reports: Obesity/BMI 30+ Hematologic History: Reports: None Immunologic History: Reports: None Oncologic (Cancer) History: Reports: None Dermatologic History: Reports: None - Infectious Disease History Infectious Disease History: Reports: Chicken Pox - Past Surgical History Head Surgeries/Procedures: Reports: None HEENT Surgical History: Reports: Other (See Below) Musculoskeletal Surgical History: Reports: Hip Replacement, Other (See Below) Social & Family History - Family History Family Medical History: Noncontributory - Tobacco Use Smoking Status *Q: Former Smoker Years of Tobacco use: 40 Packs/Tins Daily: 1 Used Tobacco, but Quit: Yes Month/Year Tobacco Last Used: november Second Hand Smoke Exposure: No - Caffeine Use Caffeine Use: Reports: Coffee - Recreational Drug Use Recreational Drug Use: No - Living Situation & Occupation Living situation: Reports: , with Family ED ROS GENERAL - Review of Systems Review Of Systems: Comprehensive ROS is negative, except as noted in HPI. ED EXAM, GENERAL - Physical Exam Exam: See Below Exam Limited By: No Limitations General Appearance: Alert, Mild Distress Eye Exam: Bilateral Eye: Normal Inspection, PERRL Ears: Normal External Exam, Normal Canal, Hearing Grossly Normal, Normal TMs Nose: Normal Inspection, Normal Mucosa, No Blood Throat/Mouth: Normal Inspection, Normal Lips, Normal Teeth, Normal Gums, Normal Oropharynx, Normal Voice, No Airway Compromise Head: Atraumatic, Normocephalic Neck: Normal Inspection, Supple, Non-Tender, Full Range of Motion Respiratory/Chest: No Respiratory Distress, Lungs Clear, Normal Breath Sounds, No Accessory Muscle Use, Chest Non-Tender Cardiovascular: Normal Peripheral Pulses, Regular Rate, Rhythm, No Edema, No Gallop, No JVD, No Murmur, No Rub Peripheral Pulses: 3+: Posterior Tibial (L), Posterior Tibial (R), Dorsalis Pedis (L), Dorsalis Pedis (R) GI/Abdominal: Normal Bowel Sounds, Soft, Non-Tender, No Organomegaly, No Distention, No Abnormal Bruit, No Mass, Pelvis Stable Extremities: Normal Inspection, Normal Range of Motion, Non-Tender, Normal Capillary Refill, Pedal Edema (1 + pitting. patient wearing ronald hose) Neurological: Alert, Oriented, CN II-XII Intact, Normal Cognition, Normal Gait, Normal Reflexes, No Motor/Sensory Deficits Psychiatric: Normal Affect, Normal Mood Skin Exam: Warm, Dry, Intact, Normal Color Lymphatic: No Adenopathy Course - Vital Signs Last Recorded V/S: Last Vital Signs Temp 99.6 F 11/29/19 10:41 Pulse 81 11/29/19 10:41 Resp 16 11/29/19 10:41 BP 131/82 11/29/19 10:41 Pulse Ox 96 11/29/19 10:41 - Orders/Labs/Meds Labs: Laboratory Tests 11/29/19 11/29/19 11/29/19 Range/Units 11:20 11:50 11:50 WBC 11.9 H (5.0-10.0) 10^3/uL RBC 4.38 L (4.6-6.2) 10^6/uL Hgb 14.3 (14.0-18.0) g/dL Hct 44.0 (40.0-54.0) % MCV 100.5 H (80-100) fL MCH 32.6 (27.0-34.0) pg MCHC 32.5 L (33.0-35.0) g/dL Plt Count 319 (150-450) 10^3/uL Neut % (Auto) 81.0 H (42.2-75.2) % Lymph % (Auto) 12.6 L (20.5-50.1) % [place] % (Auto) 4.4 (2-8) % Eos % (Auto) 1.6 (1.0-3.0) % Baso % (Auto) 0.4 (0.0-1.0) % Sodium 140 (135-145) mmol/L Potassium 4.1 (3.6-5.0) mmol/L Chloride 102 D (101-111) mmol/L Carbon Dioxide 27.0 (21.0-31.0) mmol/L Anion Gap 15.1 BUN 17 (7-18) mg/dL Creatinine 1.1 (0.6-1.3) mg/dL Est Cr Clr Drug Dosing 69.41 mL/min Estimated GFR (MDRD) > 60 BUN/Creatinine Ratio 15.45 Glucose 104 (74-105) mg/dL Calcium 9.3 (8.4-10.2) mg/dl Total Bilirubin 0.8 (0.2-1.0) mg/dL AST 19 (10-42) IU/L ALT 13 (10-60) IU/L Alkaline Phosphatase 90 (42-121) IU/L Total Protein 7.7 (6.7-8.2) g/dl Albumin 4.3 (3.2-5.5) g/dl Globulin 3.4 Albumin/Globulin Ratio 1.26 Urine Color Yellow (YELLOW) Urine Appearance Clear (CLEAR) Urine pH 7.0 (5.0-9.0) Ur Specific [place] 1.020 (1.005-1.030) Urine Protein Negative (NEGATIVE) Urine Glucose (UA) Negative (NEGATIVE) Urine Ketones Negative (NEGATIVE) Urine Occult Blood Negative (NEGATIVE) Urine Nitrite Negative (NEGATIVE) Urine Bilirubin Negative (NEGATIVE) Urine Urobilinogen 0.2 (0.2-1.0) mg/dL Ur Leukocyte Esterase Negative (NEGATIVE) - Re-Assessments/Exams Free Text/Narrative Re-Assessment/Exam: Reviewed labs results with patient. Patient eager to leave as he has been waiting for a while. Encouraged to push fluids and rest. Follow up in the ER if symptoms worsens or in the clinic with PCP. Departure - Departure Time of Disposition: 13:44 Disposition: Home, Self-Care 01 Condition: Fair Clinical Impression: Fatigue Qualifiers: Fatigue type: unspecified Qualified Code(s): R53.83 - Other fatigue - Discharge Information Instructions: Fatigue Referrals: Juliet Lilly MD [Primary Care Provider] - Forms: ED Department Discharge Additional Instructions: Push fluids and rest. Follow up with PCP or return to ER if symptoms persist. Sepsis Event Note - Evaluation Sepsis Screening Result: No Definite Risk - Focused Exam Vital Signs: Vital Signs Temp Pulse Resp BP Pulse Ox 11/29/19 10:41 99.6 F 81 16 131/82 96 Date Exam was Performed: 11/29/19 Time Exam was Performed: 16:06
== END 2019-11-29 13:50 | disposition home or self-care (01) ==
LOC: DL.ED 10:22
DX: R53.83 Other fatigue (principal); I48.91 Unspecified atrial fibrillation; K21.9 Gastro-esophageal reflux disease without esophagitis; M19.90 Unspecified osteoarthritis, unspecified site; F32.9 Major depressive disorder, single episode, unspecified; E66.9 Obesity, unspecified; Z68.39 Body mass index [BMI] 39.0-39.9, adult; Z87.891 Personal history of nicotine dependence; Z79.82 Long term (current) use of aspirin; Z79.01 Long term (current) use of anticoagulants; Z79.899 Other long term (current) drug therapy
CPT/HCPCS: 36415; 80053; 81003; 85025; 87804; 99282; 99284

== ENCOUNTER 2023-08-18 08:12 | Emergency (ER) | payer MEDICARE, BC ==
[2023-08-18] MEDS ORDERED: Sodium Chloride 0.9% 10 ML Syringe FLUSH PRN (08:34)
[2023-08-18 08:50] VITALS: BP 149/94; PULSE 108
[2023-08-18 08:53] LABS: BASOPHILS PERCENT AUTO 0.4 % (0.0-1.0); EOSINOPHILS PERCENT AUTO 0.9 % (1.0-3.0); HEMATOCRIT 44.2 % (40.0-54.0); HEMOGLOBIN 14.2 g/dL (14.0-18.0); LYMPHOCYTES PERCENT AUTO 14.3 % (20.5-50.1); MEAN CORPUSCULAR HEMOGLOBIN 32.3 pg (27.0-34.0); MEAN CORPUSCULAR HGB CONC 32.1 g/dL (33.0-35.0); MEAN CORPUSCULAR VOLUME 100.5 fL (80-100); MONOCYTES PERCENT AUTO 4.6 % (2-8); NEUTROPHILS PERCENT AUTO 79.8 % (42.2-75.2); PLATELET COUNT,PLT 227 10^3/uL (150-450); WHITE BLOOD CELL COUNT,WBC 9.3 10^3/uL (5.0-10.0)
[2023-08-18 09:01] LABS: ALANINE AMINOTRANSFERASE,ALT 25 U/L (16-63); ALBUMIN 3.6 g/dL (3.4-5.0); ALKALINE PHOSPHATASE 111 U/L (46-116); ANION GAP 11.7 mEq/L (7-13); ASPARTATE AMNIOTRANSFERASE,AST 24 U/L (15-37); BILIRUBIN TOTAL 0.6 mg/dL (0.2-1.0); BLOOD UREA NITROGEN,BUN 19 mg/dL (7-18); BUN/CREATININE RATIO 14.8 (No establ ref range); CARBON DIOXIDE,CO2 28 mmol/L (21-32); CHLORIDE,CL 103 mmol/L (98-107); CREATININE 1.28 mg/dL (0.70-1.30); GLUCOSE RANDOM 191 mg/dL (70-99); POTASSIUM,K 3.7 mmol/L (3.5-5.1); PROTEIN TOTAL,TP 7.2 g/dL (6.4-8.2); SODIUM,NA 139 mmol/L (136-145)
[2023-08-18 09:03] LABS: B-TYPE NATRIURETIC PEPTIDE,BNP 128 pg/ml (0-100); ESTIMATED GFR 60 mL/min (>=60)
[2023-08-18 09:04] LABS: LACTIC ACID 1.6 mmol/L (0.4-2.0)
[2023-08-18 09:12] LABS: INR 2.4 (0.9-1.2); PROTHROMBIN TIME 24.3 SEC (9.0-12.0); PTT,PARTIAL THROMBOPLSTIN TIME 34.5 SEC (22.0-34.0)
[2023-08-18 09:22] LABS: CORONAVIRUS COVID-19 NAA NEGATIVE (NEGATIVE); INFLUENZA A NAA NEGATIVE (NEGATIVE); INFLUENZA B NAA NEGATIVE (NEGATIVE); RESPIRATORY SYNCYTIAL VIR NAA NEGATIVE (NEGATIVE)
[2023-08-18] MEDS ORDERED: Furosemide 100 MG/10 ML SDV IVPUSH ONE (10:06)
== END 2023-08-18 10:38 | disposition home or self-care (01) ==
LOC: DL.ED 08:12
DX: J45.909 Unspecified asthma, uncomplicated (principal); E87.79 Other fluid overload; M19.90 Unspecified osteoarthritis, unspecified site; E66.9 Obesity, unspecified; I48.91 Unspecified atrial fibrillation; E78.00 Pure hypercholesterolemia, unspecified; I10 Essential (primary) hypertension; K21.9 Gastro-esophageal reflux disease without esophagitis; Z79.82 Long term (current) use of aspirin; Z79.01 Long term (current) use of anticoagulants; Z79.84 Long term (current) use of oral hypoglycemic drugs; Z79.899 Other long term (current) drug therapy; Z88.1 Allergy status to other antibiotic agents; Z88.8 Allergy status to other drugs, medicaments and biological substances; Z20.822 Contact with and (suspected) exposure to COVID-19; Z86.16 Personal history of COVID-19
CPT/HCPCS: 0241U; 36415; 71045; 80053; 83605; 83880; 84145; 84484; 85025; 85610; 85730; 93005; 96374; 99285; J1940; J3490

== ENCOUNTER 2023-09-25 09:15 | Inpatient (IN) | payer MEDICARE, BC ==
[2023-09-25] MEDS ORDERED: Morphine 2 MG/ML SYRINGE IVPUSH ONE (09:28)
[2023-09-25] MEDS ORDERED: Sodium Chloride 0.9% 1,000 ML IV ONE (09:32)
[2023-09-25 09:44] LABS: INR 2.4 (0.9-1.2); PTT,PARTIAL THROMBOPLSTIN TIME 34.6 SEC (22.0-34.0)
[2023-09-25] MEDS ORDERED: cefTRIAXone 2 GM Vial IVPUSH ONE (10:42)
[2023-09-25 10:56] LABS: APPEARANCE,URINE CLEAR (CLEAR); COLOR,URINE YELLOW (YELLOW)
[2023-09-25 10:57] LABS: BILIRUBIN,URINE NEGATIVE (NEGATIVE); GLUCOSE,URINE NEGATIVE (NEGATIVE); KETONES,URINE NEGATIVE (NEGATIVE); LEUKOCYTE ESTERASE,URINE SMALL (NEGATIVE); NITRITE,URINE POSITIVE (NEGATIVE); OCCULT BLOOD,URINE SMALL (NEGATIVE); PROTEIN,URINE 100 (NEGATIVE); UROBILINOGEN,URINE 0.2 mg/dL (0.2-1.0)
[2023-09-25 11:09] LABS: BASOPHILS PERCENT AUTO 0.3 % (0.0-1.0); EOSINOPHILS PERCENT AUTO 0.1 % (1.0-3.0); HEMATOCRIT 44.7 % (40.0-54.0); HEMOGLOBIN 14.4 g/dL (14.0-18.0); LYMPHOCYTES PERCENT AUTO 6.3 % (20.5-50.1); MEAN CORPUSCULAR HEMOGLOBIN 32.1 pg (27.0-34.0); MEAN CORPUSCULAR HGB CONC 32.2 g/dL (33.0-35.0); MEAN CORPUSCULAR VOLUME 99.8 fL (80-100); MONOCYTES PERCENT AUTO 7.2 % (2-8); NEUTROPHILS PERCENT AUTO 86.1 % (42.2-75.2); PLATELET COUNT,PLT 180 10^3/uL (150-450); RED BLOOD CELL COUNT 4.48 10^6/uL (4.6-6.2); WHITE BLOOD CELL COUNT,WBC 17.7 10^3/uL (5.0-10.0)
[2023-09-25 11:12] LABS: BACTERIA,URINE MANY /HPF (0-FEW/HPF); EPITHELIAL CELLS,URINE NOT SEEN /HPF (NOT SEEN); RBC,URINE 0-5 /HPF (0-5)
[2023-09-25 11:13] LABS: ANION GAP 12.8 mEq/L (7-13); CREATININE 1.22 mg/dL (0.70-1.30); EST CRCL DRUG DOSING (CG) 60.96 mL/min; POTASSIUM,K 4.8 mmol/L (3.5-5.1)
[2023-09-25 11:18] LABS: CALCIUM 8.6 mg/dL (8.5-10.1)
[2023-09-25] MEDS ORDERED: Ondansetron 4 MG/2 ML SDV IVPUSH PRN (11:26)
[2023-09-25] MEDS ORDERED: Sennosides/Docusate Sodium 50-8.6 MG Tab PO PRN (11:26)
[2023-09-25] MEDS ORDERED: Albuterol/Ipratropium 3.0-0.5 MG/3 ML Neb Soln NEB PRN (11:26)
[2023-09-25] MEDS ORDERED: Magnesium Hydroxide 400 MG/5 ML Susp 30 ML Cup PO PRN (11:26)
[2023-09-25] MEDS ORDERED: Acetaminophen 325 MG Tab PO PRN (11:26)
[2023-09-25] MEDS ORDERED: HYDROmorphone 0.5 MG/0.5 ML Syringe IVPUSH PRN (11:26)
[2023-09-25] MEDS ORDERED: Polyethylene Glycol 3350 Powder 17 GM Packet PO PRN (11:26)
[2023-09-25] MEDS ORDERED: hydrALAZINE 20 MG/ML SDV IVPUSH PRN (11:36)
[2023-09-25] MEDS ORDERED: Metoprolol Tartrate 5 MG/5 ML SDV IVPUSH PRN (11:36)
[2023-09-25] MEDS ORDERED: Acetaminophen/oxyCODONE 325-5 MG Tab PO PRN (14:16)
[2023-09-25] MEDS: SUCRALFATE 1 GM PO SCH ×2 (17:26→20:21)
[2023-09-25] MEDS: Torsemide 20 MG Tab **OWN MED PO SCH (20:21)
[2023-09-25] MEDS: metFORMIN 500 MG Tab **OWN MED PO SCH (20:21)
[2023-09-25] MEDS: Baclofen 10 MG Tab **OWN MED PO SCH (20:22)
[2023-09-25] MEDS: ROSUVASTATIN 40 MG **OWN MED PO SCH (20:22)
[2023-09-25] MEDS: Allopurinol 100 MG Tab **OWN MED PO SCH (20:23)
[2023-09-25] MEDS: SYMBICORT 160-4.5 **OWN MED INH SCH (20:32)
[2023-09-25] MEDS: BRIMONIDINE 0.2% EYERT SCH (20:33)
[2023-09-25] MEDS: Latanoprost 0.005% Ophth Soln **OWN MED EYELF SCH (20:34)
[2023-09-25] MEDS: SERTRALINE 100 MG **OWN MED PO SCH (20:36)
[2023-09-25] MEDS: Potassium Chloride 10 MEQ Tab.ER **OWN MED PO SCH (20:36)
[2023-09-25] MEDS: Losartan 25 MG Tab **OWN MED PO SCH (20:41)
[2023-09-25] MEDS ORDERED: OMEPRAZOLE 40 MG PO SCH (21:00)
[2023-09-25] MEDS ORDERED: Metoprolol Succinate 50 MG Tab.ER PO SCH (21:00)
[2023-09-26] MEDS: OMEPRAZOLE 40 MG PO SCH ×2 (05:44→16:29)
[2023-09-26] MEDS: SYMBICORT 160-4.5 **OWN MED INH SCH ×4 (05:56→19:28)
[2023-09-26 06:42] LABS: BASOPHILS PERCENT AUTO 0.2 % (0.0-1.0); EOSINOPHILS PERCENT AUTO 0.3 % (1.0-3.0); HEMATOCRIT 39.9 % (40.0-54.0); LYMPHOCYTES PERCENT AUTO 7.3 % (20.5-50.1); MEAN CORPUSCULAR HEMOGLOBIN 32.5 pg (27.0-34.0); MEAN CORPUSCULAR HGB CONC 32.6 g/dL (33.0-35.0); MEAN CORPUSCULAR VOLUME 99.8 fL (80-100); MONOCYTES PERCENT AUTO 4.8 % (2-8); NEUTROPHILS PERCENT AUTO 87.4 % (42.2-75.2); PLATELET COUNT,PLT 178 10^3/uL (150-450); WHITE BLOOD CELL COUNT,WBC 12.4 10^3/uL (5.0-10.0)
[2023-09-26 07:06] LABS: ALBUMIN 2.9 g/dL (3.4-5.0); ANION GAP 12.2 mEq/L (7-13); BILIRUBIN TOTAL 0.9 mg/dL (0.2-1.0); BUN/CREATININE RATIO 10.4 (No establ ref range); CALCIUM 8.4 mg/dL (8.5-10.1); CREATININE 1.34 mg/dL (0.70-1.30); EST CRCL DRUG DOSING (CG) 53.85 mL/min; POTASSIUM,K 4.2 mmol/L (3.5-5.1); PROTEIN TOTAL,TP 6.6 g/dL (6.4-8.2)
[2023-09-26 07:07] LABS: A/G RATIO 0.78; INR 1.7 (0.9-1.2); PROTHROMBIN TIME 17.2 SEC (9.0-12.0)
[2023-09-26 07:13] LABS: HEMOGLOBIN A1C 7.2 % (<5.7)
[2023-09-26] MEDS ORDERED: WARFARIN SODIUM 1 MG PO SCH (09:00)
[2023-09-26] MEDS: Torsemide 20 MG Tab **OWN MED PO SCH ×2 (09:21→20:21)
[2023-09-26] MEDS: SUCRALFATE 1 GM PO SCH ×4 (09:24→20:19)
[2023-09-26] MEDS: metFORMIN 500 MG Tab **OWN MED PO SCH ×2 (09:24→20:22)
[2023-09-26] MEDS: Baclofen 10 MG Tab **OWN MED PO SCH ×2 (09:28→20:24)
[2023-09-26] MEDS: Saccharomyces Boulardii (Probiotic) 250 MG Cap PO SCH (09:32)
[2023-09-26] MEDS: Metoprolol Tartrate 50 MG Tab PO SCH ×2 (09:32→20:36)
[2023-09-26] MEDS: Magnesium Oxide 400 MG Tab PO SCH (09:33)
[2023-09-26] MEDS: DEXAMETHASONE 0.1% EYELF SCH (09:33)
[2023-09-26] MEDS: Allopurinol 100 MG Tab **OWN MED PO SCH ×3 (09:33→20:28)
[2023-09-26] MEDS: BRIMONIDINE 0.2% EYERT SCH ×2 (09:34→20:20)
[2023-09-26] MEDS: TIMOLOL MALEATE 0.5% EYELF SCH (09:35)
[2023-09-26] MEDS: WARFARIN 6 MG PO SCH (09:35)
[2023-09-26] MEDS: cefTRIAXone 2 GM Vial IVPUSH SCH (09:41)
[2023-09-26] MEDS ORDERED: Warfarin 2 MG Tab PO SCH ×2 (14:00)
[2023-09-26] MEDS ORDERED: Take Home: Potassium Chloride 10 MEQ Tab, 10 Tab Pack PO SCH (18:00)
[2023-09-26] MEDS ORDERED: ACETAMINOPHEN PO PRN (20:00)
[2023-09-26] MEDS ORDERED: DIPHENHYDRAMINE PO PRN (20:00)
[2023-09-26] MEDS: Losartan 25 MG Tab **OWN MED PO SCH (20:21)
[2023-09-26] MEDS: Potassium Chloride 10 MEQ Tab.ER **OWN MED PO SCH (20:23)
[2023-09-26] MEDS: ROSUVASTATIN 40 MG **OWN MED PO SCH (20:27)
[2023-09-26] MEDS: SERTRALINE 100 MG **OWN MED PO SCH (20:32)
[2023-09-26] MEDS: Latanoprost 0.005% Ophth Soln **OWN MED EYELF SCH (20:33)
[2023-09-26] MEDS ORDERED: Famotidine 20 MG Tab PO SCH (21:00)
[2023-09-27] MEDS: SYMBICORT 160-4.5 **OWN MED INH SCH ×4 (05:51→17:24)
[2023-09-27] MEDS: OMEPRAZOLE 40 MG PO SCH ×2 (05:51→16:15)
[2023-09-27 06:32] LABS: BASOPHILS PERCENT AUTO 0.2 % (0.0-1.0); EOSINOPHILS PERCENT AUTO 1.1 % (1.0-3.0); HEMATOCRIT 44.5 % (40.0-54.0); HEMOGLOBIN 13.8 g/dL (14.0-18.0); MEAN CORPUSCULAR HEMOGLOBIN 31.2 pg (27.0-34.0); MEAN CORPUSCULAR VOLUME 100.7 fL (80-100); MONOCYTES PERCENT AUTO 8.3 % (2-8); NEUTROPHILS PERCENT AUTO 78.4 % (42.2-75.2); PLATELET COUNT,PLT 193 10^3/uL (150-450); RED BLOOD CELL COUNT 4.42 10^6/uL (4.6-6.2)
[2023-09-27 06:56] LABS: ANION GAP 14.8 mEq/L (7-13); BILIRUBIN TOTAL 0.5 mg/dL (0.2-1.0); BUN/CREATININE RATIO 12.6 (No establ ref range); C-REACTIVE PROTEIN 20.64 ng/dL (<=0.50); CALCIUM 8.6 mg/dL (8.5-10.1); CREATININE 1.51 mg/dL (0.70-1.30); EST CRCL DRUG DOSING (CG) 47.79 mL/min; MAGNESIUM 2.3 mg/dL (1.8-2.4); POTASSIUM,K 3.8 mmol/L (3.5-5.1); PROTEIN TOTAL,TP 7.3 g/dL (6.4-8.2)
[2023-09-27 06:57] LABS: INR 1.6 (0.9-1.2); PROTHROMBIN TIME 15.7 SEC (9.0-12.0)
[2023-09-27 07:02] LABS: A/G RATIO 0.7
[2023-09-27] MEDS ORDERED: Famotidine 20 MG Tab PO SCH (09:00)
[2023-09-27] MEDS ORDERED: Enoxaparin 100 MG/1 ML Syringe SUBCUT ONE (09:14)
[2023-09-27] MEDS ORDERED: Sodium Chloride 0.9% 1,000 ML IV SCH (09:15)
[2023-09-27] MEDS: Metoprolol Tartrate 50 MG Tab PO SCH (09:18)
[2023-09-27] MEDS: Saccharomyces Boulardii (Probiotic) 250 MG Cap PO SCH (09:19)
[2023-09-27] MEDS: Magnesium Oxide 400 MG Tab PO SCH (09:19)
[2023-09-27] MEDS: Baclofen 10 MG Tab **OWN MED PO SCH (09:20)
[2023-09-27] MEDS: SUCRALFATE 1 GM PO SCH ×3 (09:21→16:16)
[2023-09-27] MEDS: Torsemide 20 MG Tab **OWN MED PO SCH (09:21)
[2023-09-27] MEDS: Allopurinol 100 MG Tab **OWN MED PO SCH ×2 (09:22→14:06)
[2023-09-27] MEDS: cefTRIAXone 2 GM Vial IVPUSH SCH (09:26)
[2023-09-27] MEDS: TIMOLOL MALEATE 0.5% EYELF SCH (09:27)
[2023-09-27] MEDS: DEXAMETHASONE 0.1% EYELF SCH (09:29)
[2023-09-27] MEDS: WARFARIN 6 MG PO SCH (09:30)
[2023-09-27] MEDS: BRIMONIDINE 0.2% EYERT SCH (09:30)
[2023-09-27 16:29] LABS: CREATININE 1.5 mg/dL (0.70-1.30); EST CRCL DRUG DOSING (CG) 48.11 mL/min
[2023-09-27 16:32] LABS: INR 1.5 (0.9-1.2); PROTHROMBIN TIME 15.6 SEC (9.0-12.0)
[2023-09-27] MEDS: metFORMIN 500 MG Tab **OWN MED PO SCH (17:23)
[2023-09-27 17:43] VITALS: BP 120/74; PULSE 95
[2023-09-27] MEDS ORDERED: metFORMIN 500 MG Tab **OWN MED PO SCH (18:00)
== END 2023-09-27 17:40 | disposition home or self-care (01) | DRG 690 ==
LOC: DL.ED 09:15 → DL.MS 10:56 → DL.ED 11:06 → OBSVTOIN 09-26 12:22
PROVIDERS: ADMIT Internal Medicine; ATTEND Internal Medicine
DX: N12 Tubulo-interstitial nephritis, not specified as acute or chronic (principal); Z68.41 Body mass index [BMI] 40.0-44.9, adult; E87.1 Hypo-osmolality and hyponatremia; I48.91 Unspecified atrial fibrillation; E78.00 Pure hypercholesterolemia, unspecified; I10 Essential (primary) hypertension; J44.9 Chronic obstructive pulmonary disease, unspecified; K21.9 Gastro-esophageal reflux disease without esophagitis; M19.90 Unspecified osteoarthritis, unspecified site; F32.A Depression, unspecified; F41.9 Anxiety disorder, unspecified; Z96.649 Presence of unspecified artificial hip joint; D72.829 Elevated white blood cell count, unspecified; G47.33 Obstructive sleep apnea (adult) (pediatric); E11.42 Type 2 diabetes mellitus with diabetic polyneuropathy; E66.01 Morbid (severe) obesity due to excess calories; E11.65 Type 2 diabetes mellitus with hyperglycemia; N17.9 Acute kidney failure, unspecified; R26.89 Other abnormalities of gait and mobility; B96.20 Unspecified Escherichia coli [E. coli] as the cause of diseases classified elsewhere; Z88.8 Allergy status to other drugs, medicaments and biological substances; Z88.1 Allergy status to other antibiotic agents; Z79.82 Long term (current) use of aspirin; Z79.899 Other long term (current) drug therapy; Z79.84 Long term (current) use of oral hypoglycemic drugs; Z79.01 Long term (current) use of anticoagulants; Z86.16 Personal history of COVID-19; Z98.890 Other specified postprocedural states; Z91.148 Patient's other noncompliance with medication regimen for other reason
CPT/HCPCS: 36415; 80048; 80053; 81001; 82565; 83036; 83735; 85025; 85610; 85730; 86140; 87086; 87088; 87186; 94760; 96374; 96375; 96376; 99284; 99285-25; A9270-GY; C1758; G0378; J0696; J1650; J2270; J7030

== ENCOUNTER 2023-12-09 17:51 | Emergency (ER) | payer MEDICARE, BC ==
[2023-12-09 18:10] VITALS: PULSE 109
[2023-12-09] MEDS: Sodium Chloride 0.9% 10 ML Syringe FLUSH PRN (18:27)
[2023-12-09 18:35] LABS: BASOPHILS PERCENT AUTO 0.5 % (0.0-1.0); EOSINOPHILS PERCENT AUTO 0.8 % (1.0-3.0); HEMATOCRIT 45.7 % (40.0-54.0); HEMOGLOBIN 14.5 g/dL (14.0-18.0); LYMPHOCYTES PERCENT AUTO 15.8 % (20.5-50.1); MEAN CORPUSCULAR HEMOGLOBIN 31.6 pg (27.0-34.0); MEAN CORPUSCULAR HGB CONC 31.7 g/dL (33.0-35.0); MEAN CORPUSCULAR VOLUME 99.6 fL (80-100); MONOCYTES PERCENT AUTO 5.5 % (2-8); NEUTROPHILS PERCENT AUTO 77.4 % (42.2-75.2); PLATELET COUNT,PLT 200 10^3/uL (150-450); RED BLOOD CELL COUNT 4.59 10^6/uL (4.6-6.2); WHITE BLOOD CELL COUNT,WBC 7.9 10^3/uL (5.0-10.0)
[2023-12-09 18:48] LABS: PROTHROMBIN TIME 39.3 SEC (9.0-12.0)
[2023-12-09 18:51] LABS: A/G RATIO 0.9; ALANINE AMINOTRANSFERASE,ALT 28 U/L (16-63); ALBUMIN 3.6 g/dL (3.4-5.0); ALKALINE PHOSPHATASE 121 U/L (46-116); ANION GAP 14.6 mEq/L (7-13); ASPARTATE AMNIOTRANSFERASE,AST 35 U/L (15-37); BILIRUBIN TOTAL 0.7 mg/dL (0.2-1.0); BLOOD UREA NITROGEN,BUN 23 mg/dL (7-18); BUN/CREATININE RATIO 19.3 (No establ ref range); CALCIUM 8.4 mg/dL (8.5-10.1); CARBON DIOXIDE,CO2 28 mmol/L (21-32); CHLORIDE,CL 101 mmol/L (98-107); CREATININE 1.19 mg/dL (0.70-1.30); EST CRCL DRUG DOSING (CG) 60.64 mL/min; GLUCOSE RANDOM 184 mg/dL (70-99); POTASSIUM,K 4.6 mmol/L (3.5-5.1); PROTEIN TOTAL,TP 7.4 g/dL (6.4-8.2); SODIUM,NA 139 mmol/L (136-145)
[2023-12-09 18:52] LABS: C-REACTIVE PROTEIN < 0.50 ng/dL (<=0.50); ESTIMATED GFR 65 mL/min (>=60)
[2023-12-09 18:54] LABS: LACTIC ACID 1.8 mmol/L (0.4-2.0)
[2023-12-09 18:58] LABS: B-TYPE NATRIURETIC PEPTIDE,BNP 46 pg/ml (0-100)
[2023-12-09 19:09] LABS: CORONAVIRUS COVID-19 NAA NEGATIVE (NEGATIVE); INFLUENZA A NAA NEGATIVE (NEGATIVE); INFLUENZA B NAA NEGATIVE (NEGATIVE)
[2023-12-09] MEDS: cefTRIAXone 2 GM Vial IVPUSH ONE (19:38)
[2023-12-09 19:55] VITALS: BP 124/90
== END 2023-12-09 20:06 | disposition home or self-care (01) ==
LOC: DL.ED 17:51
DX: J18.9 Pneumonia, unspecified organism (principal); E78.00 Pure hypercholesterolemia, unspecified; J44.9 Chronic obstructive pulmonary disease, unspecified; E66.9 Obesity, unspecified; I11.0 Hypertensive heart disease with heart failure; I50.9 Heart failure, unspecified; I48.91 Unspecified atrial fibrillation; Z87.891 Personal history of nicotine dependence; Z86.16 Personal history of COVID-19; Z79.82 Long term (current) use of aspirin; Z79.01 Long term (current) use of anticoagulants; Z79.899 Other long term (current) drug therapy; Z88.1 Allergy status to other antibiotic agents; Z88.8 Allergy status to other drugs, medicaments and biological substances; Z68.39 Body mass index [BMI] 39.0-39.9, adult
CPT/HCPCS: 0240U; 36415; 71046; 80053; 83605; 83880; 85025; 85610; 86140; 87040; 96374; 99284; 99285; J0696; J3490

== ENCOUNTER 2023-12-17 09:08 | Inpatient (IN) | payer MEDICARE, BC ==
[2023-12-17] MEDS: methylPREDNISolone Sodium Succinate 125 MG/2 ML SDV IVPUSH ONE (10:11)
[2023-12-17] MEDS: Sodium Chloride 0.9% 10 ML Syringe FLUSH PRN (10:11)
[2023-12-17] MEDS: Albuterol/Ipratropium 3.0-0.5 MG/3 ML Neb Soln NEB ONE (10:11)
[2023-12-17 10:17] LABS: BASOPHILS PERCENT AUTO 0.2 % (0.0-1.0); EOSINOPHILS PERCENT AUTO 1.4 % (1.0-3.0); HEMATOCRIT 46.6 % (40.0-54.0); HEMOGLOBIN 14.7 g/dL (14.0-18.0); MEAN CORPUSCULAR HEMOGLOBIN 30.7 pg (27.0-34.0); MEAN CORPUSCULAR HGB CONC 31.5 g/dL (33.0-35.0); MEAN CORPUSCULAR VOLUME 97.3 fL (80-100); MONOCYTES PERCENT AUTO 6.5 % (2-8); NEUTROPHILS PERCENT AUTO 81.9 % (42.2-75.2); PLATELET COUNT,PLT 262 10^3/uL (150-450); RED BLOOD CELL COUNT 4.79 10^6/uL (4.6-6.2); WHITE BLOOD CELL COUNT,WBC 12.5 10^3/uL (5.0-10.0)
[2023-12-17 10:34] LABS: INR 1.9 (0.9-1.2); PROTHROMBIN TIME 18.7 SEC (9.0-12.0)
[2023-12-17 10:43] LABS: A/G RATIO 0.9; ALBUMIN 3.4 g/dL (3.4-5.0); ANION GAP 13.3 mEq/L (7-13); BILIRUBIN TOTAL 0.9 mg/dL (0.2-1.0); BUN/CREATININE RATIO 24.5 (No establ ref range); CALCIUM 8.8 mg/dL (8.5-10.1); CREATININE 1.88 mg/dL (0.70-1.30); EST CRCL DRUG DOSING (CG) 38.38 mL/min; MAGNESIUM 2.3 mg/dL (1.8-2.4); POTASSIUM,K 3.3 mmol/L (3.5-5.1); PROTEIN TOTAL,TP 7.1 g/dL (6.4-8.2)
[2023-12-17 10:45] LABS: LACTIC ACID 2.1 mmol/L (0.4-2.0)
[2023-12-17 11:09] LABS: CORONAVIRUS COVID-19 NAA NEGATIVE (NEGATIVE); INFLUENZA A NAA NEGATIVE (NEGATIVE); INFLUENZA B NAA NEGATIVE (NEGATIVE); RESPIRATORY SYNCYTIAL VIR NAA NEGATIVE (NEGATIVE)
[2023-12-17] MEDS: Levofloxacin/Dextrose 5%-Water 750 MG in Premix Bag 1 BAG IV ONE (12:08)
[2023-12-17] MEDS ORDERED: HYDROmorphone 0.5 MG/0.5 ML Syringe IVPUSH PRN (13:11)
[2023-12-17] MEDS ORDERED: Acetaminophen 325 MG Tab PO PRN (13:11)
[2023-12-17] MEDS ORDERED: Ondansetron 4 MG/2 ML SDV IVPUSH PRN (13:11)
[2023-12-17] MEDS ORDERED: Magnesium Hydroxide 400 MG/5 ML Susp 30 ML Cup PO PRN (13:11)
[2023-12-17] MEDS ORDERED: Metoprolol Tartrate 5 MG/5 ML SDV IVPUSH PRN (13:11)
[2023-12-17] MEDS ORDERED: Naloxone 2 MG/2 ML Syringe IVPUSH PRN (13:11)
[2023-12-17] MEDS ORDERED: hydrALAZINE 20 MG/ML SDV IVPUSH PRN (13:11)
[2023-12-17] MEDS ORDERED: Polyethylene Glycol 3350 Powder 17 GM Packet PO PRN (13:11)
[2023-12-17] MEDS ORDERED: Sennosides/Docusate Sodium 50-8.6 MG Tab PO PRN (13:11)
[2023-12-17] MEDS ORDERED: Glucagon,Human Recombinant 1 MG Vial IM PRN (13:18)
[2023-12-17] MEDS ORDERED: 50% Dextrose in Water 50 ML Syringe IVPUSH PRN (13:18)
[2023-12-17] MEDS ORDERED: Magnesium Sulfate/D5W 1 GM/100 ML BAG IV ONE (13:19)
[2023-12-17] MEDS ORDERED: guaiFENesin/Dextromethorphan 100-10 MG/5 ML Soln 5 ML Cup PO PRN (13:20)
[2023-12-17] MEDS ORDERED: Acetaminophen/oxyCODONE 325-5 MG Tab PO PRN (13:34)
[2023-12-17] MEDS: Sodium Chloride 0.9% 1,000 ML IV SCH (13:41)
[2023-12-17] MEDS: Piperacillin/Tazobactam 4.5 GM in Sodium Chloride 0.9% 100 ML IV ONE (13:42)
[2023-12-17] MEDS: Azithromycin 500 MG in Sodium Chloride 0.9% 250 ML IV ONE (14:11)
[2023-12-17] MEDS: Allopurinol 100 MG Tab PO SCH (14:12)
[2023-12-17] MEDS: guaiFENesin 600 MG Tab.ER PO ONE (14:12)
[2023-12-17] MEDS: metFORMIN 500 MG Tab PO SCH (14:13)
[2023-12-17] MEDS: Albuterol/Ipratropium 3.0-0.5 MG/3 ML Neb Soln ONE (14:13)
[2023-12-17] MEDS: Warfarin 2 MG Tab PO SCH (15:11)
[2023-12-17] MEDS: Insulin Lispro 100 Units/ML 3 ML Vial SUBCUT SCH (16:58)
[2023-12-17] MEDS: Piperacillin/Tazobactam 4.5 GM in Sodium Chloride 0.9% 100 ML IV SCH (16:59)
[2023-12-17] MEDS: Sucralfate 1 GM Tab PO SCH (16:59)
[2023-12-17] MEDS ORDERED: Potassium Chloride 10 MEQ Tab.ER PO ONE (17:00)
[2023-12-17] MEDS: Potassium Chloride 10 MEQ Tab.ER PO SCH (17:55)
[2023-12-17] MEDS: Albuterol/Ipratropium 3.0-0.5 MG/3 ML Neb Soln NEB SCH (17:56)
[2023-12-17] MEDS: Brimonidine 0.2% Ophth Soln 5 ML Bottle EYERT SCH (20:38)
[2023-12-17] MEDS: Latanoprost 0.005% Ophth Soln 2.5 ML Bottle EYELF SCH (20:39)
[2023-12-17] MEDS: Formoterol/Mometasone 200-5 MCG 8.8 GM Inhaler IH SCH (20:39)
[2023-12-17] MEDS: methylPREDNISolone Sodium Succinate 125 MG/2 ML SDV IVPUSH SCH (20:50)
[2023-12-17] MEDS: Omeprazole 20 MG Cap.CR PO SCH (20:51)
[2023-12-17] MEDS: Baclofen 10 MG Tab PO SCH (20:51)
[2023-12-17] MEDS: Saccharomyces Boulardii (Probiotic) 250 MG Cap PO SCH (20:51)
[2023-12-17] MEDS: guaiFENesin 600 MG Tab.ER PO SCH (20:51)
[2023-12-17] MEDS: Metoprolol Tartrate 50 MG Tab PO SCH (20:51)
[2023-12-17] MEDS: Rosuvastatin 10 MG Tab PO SCH (20:52)
[2023-12-18] MEDS: Piperacillin/Tazobactam 4.5 GM in Sodium Chloride 0.9% 100 ML IV SCH (00:51)
[2023-12-18] MEDS: SYMBICORT 160/4.5 SCH (05:30)
[2023-12-18] MEDS: Potassium Chloride 10 MEQ Tab.ER PO SCH (05:57)
[2023-12-18 06:48] LABS: BASOPHILS PERCENT AUTO 0.1 % (0.0-1.0); HEMATOCRIT 46.2 % (40.0-54.0); HEMOGLOBIN 14.7 g/dL (14.0-18.0); LYMPHOCYTES PERCENT AUTO 5.9 % (20.5-50.1); MEAN CORPUSCULAR HEMOGLOBIN 31.2 pg (27.0-34.0); MEAN CORPUSCULAR HGB CONC 31.8 g/dL (33.0-35.0); MEAN CORPUSCULAR VOLUME 98.1 fL (80-100); MONOCYTES PERCENT AUTO 2.2 % (2-8); NEUTROPHILS PERCENT AUTO 91.8 % (42.2-75.2); PLATELET COUNT,PLT 217 10^3/uL (150-450); RED BLOOD CELL COUNT 4.71 10^6/uL (4.6-6.2); WHITE BLOOD CELL COUNT,WBC 14.5 10^3/uL (5.0-10.0)
[2023-12-18 07:35] LABS: ALBUMIN 3.3 g/dL (3.4-5.0); ANION GAP 14.8 mEq/L (7-13); BILIRUBIN TOTAL 0.8 mg/dL (0.2-1.0); BUN/CREATININE RATIO 21.4 (No establ ref range); C-REACTIVE PROTEIN 3.73 ng/dL (<=0.50); CALCIUM 8.8 mg/dL (8.5-10.1); CREATININE 1.68 mg/dL (0.70-1.30); EST CRCL DRUG DOSING (CG) 42.95 mL/min; MAGNESIUM 2.4 mg/dL (1.8-2.4); POTASSIUM,K 3.8 mmol/L (3.5-5.1)
[2023-12-18 07:36] LABS: A/G RATIO 0.89
[2023-12-18] MEDS: Azithromycin 500 MG in Sodium Chloride 0.9% 250 ML IV SCH (08:22)
[2023-12-18] MEDS: Losartan 25 MG Tab PO SCH (08:33)
[2023-12-18] MEDS: Sertraline 50 MG Tab PO SCH (08:33)
[2023-12-18] MEDS: Magnesium Oxide 400 MG Tab PO SCH (08:34)
[2023-12-18] MEDS: Famotidine 20 MG Tab PO SCH (08:34)
[2023-12-18] MEDS: Torsemide 20 MG Tab PO SCH (08:53)
[2023-12-18] MEDS: Metolazone 2.5 MG Tab PO SCH (08:54)
[2023-12-18] MEDS: DEXAMETHASONE 0.1% EYELF SCH (09:50)
[2023-12-18] MEDS: TIMOLOL MALEATE 0.5% EYEBOTH SCH (09:50)
[2023-12-18] MEDS: Timolol Maleate 0.5% Ophth Soln 5 ML Bottle EYELF SCH (10:14)
[2023-12-18] MEDS: Dexamethasone 0.1% Ophth Soln 5 ML Bottle EYELF SCH (10:15)
[2023-12-18] MEDS: methylPREDNISolone Sodium Succinate 125 MG/2 ML SDV IVPUSH SCH (14:06)
[2023-12-18] MEDS: Latanoprost 0.005% Ophth Soln **OWN MED EYEBOTH SCH (20:56)
[2023-12-19 06:47] LABS: BASOPHILS PERCENT AUTO 0.1 % (0.0-1.0); HEMATOCRIT 43.1 % (40.0-54.0); HEMOGLOBIN 14.1 g/dL (14.0-18.0); LYMPHOCYTES PERCENT AUTO 5.3 % (20.5-50.1); MEAN CORPUSCULAR HEMOGLOBIN 31.8 pg (27.0-34.0); MEAN CORPUSCULAR HGB CONC 32.7 g/dL (33.0-35.0); MEAN CORPUSCULAR VOLUME 97.3 fL (80-100); MONOCYTES PERCENT AUTO 2.1 % (2-8); NEUTROPHILS PERCENT AUTO 92.5 % (42.2-75.2); PLATELET COUNT,PLT 212 10^3/uL (150-450); RED BLOOD CELL COUNT 4.43 10^6/uL (4.6-6.2); WHITE BLOOD CELL COUNT,WBC 16.5 10^3/uL (5.0-10.0)
[2023-12-19 07:17] LABS: INR 2.6 (0.9-1.2)
[2023-12-19 07:18] LABS: BILIRUBIN TOTAL 0.5 mg/dL (0.2-1.0); BUN/CREATININE RATIO 24.3 (No establ ref range); C-REACTIVE PROTEIN 1.74 ng/dL (<=0.50); CALCIUM 8.5 mg/dL (8.5-10.1); CREATININE 1.52 mg/dL (0.70-1.30); EST CRCL DRUG DOSING (CG) 47.48 mL/min; MAGNESIUM 2.2 mg/dL (1.8-2.4); PROTEIN TOTAL,TP 6.6 g/dL (6.4-8.2)
[2023-12-19 07:21] LABS: A/G RATIO 0.83
[2023-12-19] MEDS: WARFARIN SODIUM 1 MG PO SCH (10:45)
[2023-12-19] MEDS: methylPREDNISolone Sodium Succinate 125 MG/2 ML SDV IVPUSH SCH (13:28)
[2023-12-19] MEDS: ACET PO PRN (20:31)
[2023-12-19] MEDS: DIPHEN PO PRN (20:31)
[2023-12-20 06:27] LABS: BASOPHILS PERCENT AUTO 0.1 % (0.0-1.0); HEMATOCRIT 44.6 % (40.0-54.0); LYMPHOCYTES PERCENT AUTO 5.7 % (20.5-50.1); MEAN CORPUSCULAR HEMOGLOBIN 30.8 pg (27.0-34.0); MEAN CORPUSCULAR HGB CONC 31.4 g/dL (33.0-35.0); MONOCYTES PERCENT AUTO 2.4 % (2-8); NEUTROPHILS PERCENT AUTO 91.8 % (42.2-75.2); PLATELET COUNT,PLT 207 10^3/uL (150-450); RED BLOOD CELL COUNT 4.55 10^6/uL (4.6-6.2)
[2023-12-20 06:44] LABS: ANION GAP 11.4 mEq/L (7-13); BILIRUBIN TOTAL 0.6 mg/dL (0.2-1.0); BUN/CREATININE RATIO 24.1 (No establ ref range); C-REACTIVE PROTEIN 0.9 ng/dL (<=0.50); CALCIUM 8.6 mg/dL (8.5-10.1); CREATININE 1.7 mg/dL (0.70-1.30); EST CRCL DRUG DOSING (CG) 42.45 mL/min; POTASSIUM,K 3.4 mmol/L (3.5-5.1); PROTEIN TOTAL,TP 6.5 g/dL (6.4-8.2)
[2023-12-20 06:46] LABS: A/G RATIO 0.86
[2023-12-20 06:59] LABS: INR 3.1 (0.9-1.2); PROTHROMBIN TIME 29.8 SEC (9.0-12.0)
[2023-12-20] MEDS: Torsemide 20 MG Tab PO SCH (09:12)
[2023-12-21 06:40] LABS: BASOPHILS PERCENT AUTO 0.2 % (0.0-1.0); HEMATOCRIT 44.1 % (40.0-54.0); HEMOGLOBIN 14.5 g/dL (14.0-18.0); LYMPHOCYTES PERCENT AUTO 5.8 % (20.5-50.1); MEAN CORPUSCULAR HEMOGLOBIN 31.5 pg (27.0-34.0); MEAN CORPUSCULAR HGB CONC 32.9 g/dL (33.0-35.0); MEAN CORPUSCULAR VOLUME 95.7 fL (80-100); MONOCYTES PERCENT AUTO 3.4 % (2-8); NEUTROPHILS PERCENT AUTO 90.6 % (42.2-75.2); PLATELET COUNT,PLT 219 10^3/uL (150-450); RED BLOOD CELL COUNT 4.61 10^6/uL (4.6-6.2); WHITE BLOOD CELL COUNT,WBC 15.1 10^3/uL (5.0-10.0)
[2023-12-21 07:03] LABS: INR 3.3 (0.9-1.2); PROTHROMBIN TIME 31.9 SEC (9.0-12.0)
[2023-12-21 07:09] LABS: ALANINE AMINOTRANSFERASE,ALT 37 U/L (16-63); ALKALINE PHOSPHATASE 90 U/L (46-116); ASPARTATE AMNIOTRANSFERASE,AST 26 U/L (15-37); BILIRUBIN TOTAL 0.7 mg/dL (0.2-1.0); BLOOD UREA NITROGEN,BUN 47 mg/dL (7-18); BUN/CREATININE RATIO 28.3 (No establ ref range); CALCIUM 8.5 mg/dL (8.5-10.1); CARBON DIOXIDE,CO2 32 mmol/L (21-32); CHLORIDE,CL 93 mmol/L (98-107); CREATININE 1.66 mg/dL (0.70-1.30); EST CRCL DRUG DOSING (CG) 43.47 mL/min; GLUCOSE RANDOM 268 mg/dL (70-99); MAGNESIUM 2.1 mg/dL (1.8-2.4); PROTEIN TOTAL,TP 6.4 g/dL (6.4-8.2); SODIUM,NA 135 mmol/L (136-145)
[2023-12-21 07:13] LABS: A/G RATIO 0.88; C-REACTIVE PROTEIN < 0.50 ng/dL (<=0.50); ESTIMATED GFR 44 mL/min (>=60)
[2023-12-21 10:23] VITALS: BP 120/72; PULSE 87
== END 2023-12-21 10:00 | disposition home or self-care (01) | DRG 871 ==
LOC: DL.ED 09:08 → DL.MS 12:41
PROVIDERS: ADMIT Internal Medicine; ATTEND Internal Medicine
DX: A41.9 Sepsis, unspecified organism (principal); J18.9 Pneumonia, unspecified organism; J44.1 Chronic obstructive pulmonary disease with (acute) exacerbation; R91.1 Solitary pulmonary nodule; I11.0 Hypertensive heart disease with heart failure; I48.20 Chronic atrial fibrillation, unspecified; I13.0 Hypertensive heart and chronic kidney disease with heart failure and stage 1 through stage 4 chronic kidney disease, or unspecified chronic kidney disease; E87.1 Hypo-osmolality and hyponatremia; E66.9 Obesity, unspecified; E87.20 Acidosis, unspecified; Z68.41 Body mass index [BMI] 40.0-44.9, adult; J44.0 Chronic obstructive pulmonary disease with (acute) lower respiratory infection; I50.9 Heart failure, unspecified; G47.33 Obstructive sleep apnea (adult) (pediatric); Z88.1 Allergy status to other antibiotic agents; M19.90 Unspecified osteoarthritis, unspecified site; F32.A Depression, unspecified; F41.9 Anxiety disorder, unspecified; M10.9 Gout, unspecified; E11.42 Type 2 diabetes mellitus with diabetic polyneuropathy; H91.90 Unspecified hearing loss, unspecified ear; N18.30 Chronic kidney disease, stage 3 unspecified; E11.22 Type 2 diabetes mellitus with diabetic chronic kidney disease; D72.829 Elevated white blood cell count, unspecified; E78.00 Pure hypercholesterolemia, unspecified; Z96.649 Presence of unspecified artificial hip joint; E87.6 Hypokalemia; E87.8 Other disorders of electrolyte and fluid balance, not elsewhere classified; K21.9 Gastro-esophageal reflux disease without esophagitis; E11.65 Type 2 diabetes mellitus with hyperglycemia; E66.01 Morbid (severe) obesity due to excess calories; Z98.890 Other specified postprocedural states; Z88.8 Allergy status to other drugs, medicaments and biological substances; Z79.01 Long term (current) use of anticoagulants; Z91.199 Patient's noncompliance with other medical treatment and regimen due to unspecified reason; Z79.899 Other long term (current) drug therapy; Z79.84 Long term (current) use of oral hypoglycemic drugs; Z79.51 Long term (current) use of inhaled steroids; Z86.16 Personal history of COVID-19; Z87.891 Personal history of nicotine dependence; Z79.2 Long term (current) use of antibiotics
CPT/HCPCS: 0241U; 36415; 71250; 80053; 82947; 83605; 83735; 83880; 84145; 84484; 85025; 85610; 86140; 87040; 87070; 87077; 87186; 87205; 94010; 94060; 94640; 94664; 94667; 94668; 94762; 96365; 96375; 97161; 97165; 99284; 99285; 99223; 99232; 99233; 99238; A9270-GY; J0456; J1815-GY; J1956; J2543; J2930; J3475; J3490; J7030; J7050; J7620-GY

== ENCOUNTER 2024-01-14 09:33 | Inpatient (IN) | payer MEDICARE, BC ==
[2024-01-14 10:34] LABS: BASOPHILS PERCENT AUTO 0.2 % (0.0-1.0); EOSINOPHILS PERCENT AUTO 0.9 % (1.0-3.0); HEMATOCRIT 45.1 % (40.0-54.0); HEMOGLOBIN 14.3 g/dL (14.0-18.0); LYMPHOCYTES PERCENT AUTO 11.8 % (20.5-50.1); MEAN CORPUSCULAR HEMOGLOBIN 31.4 pg (27.0-34.0); MEAN CORPUSCULAR HGB CONC 31.7 g/dL (33.0-35.0); MEAN CORPUSCULAR VOLUME 99.1 fL (80-100); NEUTROPHILS PERCENT AUTO 79.1 % (42.2-75.2); PLATELET COUNT,PLT 249 10^3/uL (150-450); RED BLOOD CELL COUNT 4.55 10^6/uL (4.6-6.2); WHITE BLOOD CELL COUNT,WBC 10.2 10^3/uL (5.0-10.0)
[2024-01-14] MEDS: Metoprolol Tartrate 50 MG Tab PO ONE (10:54)
[2024-01-14] MEDS: Metoprolol Tartrate 5 MG/5 ML SDV IVPUSH ONE (10:54)
[2024-01-14 10:59] LABS: ALBUMIN 3.6 g/dL (3.4-5.0); ANION GAP 12.6 mEq/L (7-13); BUN/CREATININE RATIO 11.8 (No establ ref range); CALCIUM 8.9 mg/dL (8.5-10.1); CREATININE 1.61 mg/dL (0.70-1.30); EST CRCL DRUG DOSING (CG) 44.82 mL/min; LACTIC ACID 1.9 mmol/L (0.4-2.0); POTASSIUM,K 3.6 mmol/L (3.5-5.1); PROTEIN TOTAL,TP 7.2 g/dL (6.4-8.2)
[2024-01-14 11:13] LABS: CORONAVIRUS COVID-19 NAA NEGATIVE (NEGATIVE); INFLUENZA A NAA NEGATIVE (NEGATIVE); INFLUENZA B NAA NEGATIVE (NEGATIVE); RESPIRATORY SYNCYTIAL VIR NAA NEGATIVE (NEGATIVE)
[2024-01-14] MEDS: methylPREDNISolone Sodium Succinate 125 MG/2 ML SDV IVPUSH ONE (11:36)
[2024-01-14 11:39] LABS: INR 2.6 (0.9-1.2); PROTHROMBIN TIME 25.1 SEC (9.0-12.0)
[2024-01-14] MEDS ORDERED: HYDROmorphone 0.5 MG/0.5 ML Syringe IVPUSH PRN (12:46)
[2024-01-14] MEDS ORDERED: Ondansetron 4 MG/2 ML SDV IVPUSH PRN (12:46)
[2024-01-14] MEDS ORDERED: Magnesium Hydroxide 400 MG/5 ML Susp 30 ML Cup PO PRN (12:46)
[2024-01-14] MEDS ORDERED: Acetaminophen/oxyCODONE 325-5 MG Tab PO PRN ×2 (12:46→12:51)
[2024-01-14] MEDS ORDERED: Sennosides/Docusate Sodium 50-8.6 MG Tab PO PRN (12:46)
[2024-01-14] MEDS ORDERED: Albuterol/Ipratropium 3.0-0.5 MG/3 ML Neb Soln NEB PRN (12:46)
[2024-01-14] MEDS ORDERED: Naloxone 2 MG/2 ML Syringe IVPUSH PRN (12:46)
[2024-01-14] MEDS ORDERED: Acetaminophen 325 MG Tab PO PRN (12:46)
[2024-01-14] MEDS ORDERED: Polyethylene Glycol 3350 Powder 17 GM Packet PO PRN (12:46)
[2024-01-14] MEDS ORDERED: guaiFENesin 600 MG Tab.ER PO PRN (12:51)
[2024-01-14] MEDS ORDERED: Acetaminophen 500 MG Tab PO PRN (12:51)
[2024-01-14] MEDS ORDERED: Glucagon,Human Recombinant 1 MG Vial IM PRN (13:06)
[2024-01-14] MEDS ORDERED: 50% Dextrose in Water 50 ML Syringe IVPUSH PRN (13:06)
[2024-01-14 13:30] LABS: T4 FREE 1.11 ng/dL (0.76-1.46); TSH ULTRASENSITIVE 0.91 uIU/mL (0.36-3.74)
[2024-01-14] MEDS: Sucralfate 1 GM Tab PO SCH ×2 (15:10→15:13)
[2024-01-14] MEDS: Allopurinol 100 MG Tab PO SCH (15:10)
[2024-01-14] MEDS: Digoxin 500 MCG/2 ML Amp IVPUSH ONE ×3 (15:11→22:30)
[2024-01-14] MEDS: Azithromycin 500 MG in Sodium Chloride 0.9% 250 ML IV SCH ×2 (15:11→15:14)
[2024-01-14] MEDS: metFORMIN 500 MG Tab PO SCH ×2 (15:13)
[2024-01-14] MEDS ORDERED: diphenhydrAMINE 25 MG Tab PO PRN (15:52)
[2024-01-14] MEDS: Potassium Chloride 10 MEQ Tab.ER PO SCH (18:05)
[2024-01-14] MEDS: Insulin Lispro 100 Units/ML 3 ML Vial SUBCUT SCH (18:05)
[2024-01-14] MEDS: Rosuvastatin 10 MG Tab PO SCH (21:38)
[2024-01-14] MEDS: Baclofen 10 MG Tab PO SCH (21:39)
[2024-01-14] MEDS: Omeprazole 20 MG Cap.CR PO SCH (21:39)
[2024-01-14] MEDS: Metoprolol Tartrate 50 MG Tab PO SCH (21:39)
[2024-01-14] MEDS: Saccharomyces Boulardii (Probiotic) 250 MG Cap PO SCH (21:41)
[2024-01-14] MEDS: Formoterol/Mometasone 200-5 MCG 8.8 GM Inhaler IH SCH (21:43)
[2024-01-14] MEDS: Sodium Chloride 0.9% 10 ML Syringe FLUSH SCH (21:50)
[2024-01-14] MEDS: methylPREDNISolone Sodium Succinate 125 MG/2 ML SDV IVPUSH SCH (21:50)
[2024-01-15] MEDS: Brimonidine 0.2% Ophth Soln 5 ML Bottle EYERT SCH (03:22)
[2024-01-15] MEDS: Latanoprost 0.005% Ophth Soln 2.5 ML Bottle EYEBOTH SCH (03:25)
[2024-01-15] MEDS: Sodium Chloride 0.9% 10 ML Syringe FLUSH PRN (06:06)
[2024-01-15 06:47] LABS: BASOPHILS PERCENT AUTO 0.2 % (0.0-1.0); HEMATOCRIT 43.2 % (40.0-54.0); LYMPHOCYTES PERCENT AUTO 9.1 % (20.5-50.1); MEAN CORPUSCULAR HEMOGLOBIN 32.2 pg (27.0-34.0); MEAN CORPUSCULAR HGB CONC 32.4 g/dL (33.0-35.0); MEAN CORPUSCULAR VOLUME 99.3 fL (80-100); MONOCYTES PERCENT AUTO 2.5 % (2-8); NEUTROPHILS PERCENT AUTO 88.2 % (42.2-75.2); PLATELET COUNT,PLT 232 10^3/uL (150-450); RED BLOOD CELL COUNT 4.35 10^6/uL (4.6-6.2); WHITE BLOOD CELL COUNT,WBC 9.2 10^3/uL (5.0-10.0)
[2024-01-15 06:54] LABS: INR 1.9 (0.9-1.2); PROTHROMBIN TIME 18.5 SEC (9.0-12.0)
[2024-01-15 07:04] LABS: ALBUMIN 3.3 g/dL (3.4-5.0); ANION GAP 10.2 mEq/L (7-13); BILIRUBIN TOTAL 0.8 mg/dL (0.2-1.0); BUN/CREATININE RATIO 15.7 (No establ ref range); C-REACTIVE PROTEIN 12.94 ng/dL (<=0.50); CALCIUM 8.9 mg/dL (8.5-10.1); CREATININE 1.66 mg/dL (0.70-1.30); EST CRCL DRUG DOSING (CG) 43.47 mL/min; POTASSIUM,K 4.2 mmol/L (3.5-5.1)
[2024-01-15 07:05] LABS: A/G RATIO 0.89
[2024-01-15] MEDS: Potassium Chloride 10 MEQ Tab.ER PO SCH ×2 (07:11→08:31)
[2024-01-15] MEDS: Metolazone 2.5 MG Tab PO SCH (08:28)
[2024-01-15] MEDS: Digoxin 125 MCG Tab PO SCH (08:29)
[2024-01-15] MEDS: Losartan 25 MG Tab PO SCH (08:29)
[2024-01-15] MEDS: Famotidine 20 MG Tab PO SCH (08:29)
[2024-01-15] MEDS: Torsemide 20 MG Tab PO SCH (08:30)
[2024-01-15] MEDS: Sertraline 50 MG Tab PO SCH (08:30)
[2024-01-15] MEDS: Magnesium Oxide 400 MG Tab PO SCH (08:30)
[2024-01-15] MEDS: metFORMIN 500 MG Tab PO SCH (08:30)
[2024-01-15] MEDS: Dexamethasone 0.1% Ophth Soln 5 ML Bottle EYELF SCH (08:34)
[2024-01-15] MEDS: Timolol Maleate 0.5% Ophth Soln 5 ML Bottle EYEBOTH SCH (08:36)
[2024-01-15] MEDS ORDERED: WARFARIN SODIUM 1 MG PO SCH (09:00)
[2024-01-15] MEDS ORDERED: Brimonidine 0.2% Ophth Soln 5 ML Bottle EYERT SCH ×2 (09:00→21:00)
[2024-01-15] MEDS ORDERED: WARFARIN SODIUM 6 MG PO SCH (09:00)
[2024-01-15] MEDS ORDERED: Metolazone 2.5 MG Tab PO SCH (09:30)
[2024-01-15] MEDS ORDERED: WARFARIN SODIUM 3 MG PO SCH (10:45)
[2024-01-15] MEDS: SYMBICORT INH SCH (11:12)
[2024-01-15] MEDS: DEXAMETHASONE 0.1% EYELF SCH (11:12)
[2024-01-15] MEDS: BRIMONIDINE 0.2% EYERT SCH (11:12)
[2024-01-15] MEDS: methylPREDNISolone Sodium Succinate 125 MG/2 ML SDV IVPUSH SCH (13:29)
[2024-01-15] MEDS: Warfarin 2 MG Tab PO SCH (15:19)
[2024-01-15] MEDS: Digoxin 500 MCG/2 ML Amp IVPUSH ONE (20:49)
[2024-01-15] MEDS: LATANOPROST 0.005% EYEBOTH SCH (21:24)
[2024-01-16 03:15] VITALS: PULSE 101
[2024-01-16 06:20] LABS: HEMATOCRIT 42.4 % (40.0-54.0); HEMOGLOBIN 13.3 g/dL (14.0-18.0); MEAN CORPUSCULAR HEMOGLOBIN 31.1 pg (27.0-34.0); MEAN CORPUSCULAR HGB CONC 31.4 g/dL (33.0-35.0); MEAN CORPUSCULAR VOLUME 99.3 fL (80-100); PLATELET COUNT,PLT 258 10^3/uL (150-450); RED BLOOD CELL COUNT 4.27 10^6/uL (4.6-6.2); WHITE BLOOD CELL COUNT,WBC 14.3 10^3/uL (5.0-10.0)
[2024-01-16 06:44] LABS: INR 2.1 (0.9-1.2); PROTHROMBIN TIME 20.6 SEC (9.0-12.0)
[2024-01-16 06:46] LABS: ALBUMIN 3.1 g/dL (3.4-5.0); ANION GAP 14.1 mEq/L (7-13); BILIRUBIN TOTAL 0.5 mg/dL (0.2-1.0); BUN/CREATININE RATIO 20.6 (No establ ref range); C-REACTIVE PROTEIN 6.1 ng/dL (<=0.50); CREATININE 1.94 mg/dL (0.70-1.30); EST CRCL DRUG DOSING (CG) 37.2 mL/min; POTASSIUM,K 4.1 mmol/L (3.5-5.1); PROTEIN TOTAL,TP 6.6 g/dL (6.4-8.2)
[2024-01-16 06:54] LABS: A/G RATIO 0.89
[2024-01-16 07:11] LABS: NEUTROPHILS PERCENT AUTO 88.4 % (42.2-75.2)
[2024-01-16 07:12] LABS: BASOPHILS PERCENT AUTO 0.1 % (0.0-1.0); LYMPHOCYTES PERCENT AUTO 7.3 % (20.5-50.1); MONOCYTES PERCENT AUTO 4.2 % (2-8)
[2024-01-16 07:14] LABS: SEG NEUTROPHILS PERCENT MAN 82 % (42-75)
[2024-01-16 07:18] LABS: BAND PERCENT MAN 5 %; BASOPHILS PERCENT MAN 0; EOSINOPHILS PERCENT MAN 0 % (1-3); LYMPHOCYTES PERCENT MAN 7 % (20-50); MONOCYTES PERCENT MAN 6 % (2-8)
[2024-01-16 07:59] VITALS: BP 124/72
[2024-01-16] MEDS: TIMOLOL MALEATE 0.5% EYEBOTH SCH (08:38)
[2024-01-16] MEDS: Metolazone 2.5 MG Tab PO SCH (09:17)
== END 2024-01-16 11:15 | disposition home or self-care (01) | DRG 189 ==
LOC: DL.ED 09:33 → DL.MS 12:34
PROVIDERS: ADMIT Internal Medicine; ATTEND Internal Medicine
PROC: 5A09357 Assistance with Respiratory Ventilation, Less than 24 Consecutive Hours, Continuous Positive Airway Pressure (ICD-10-PCS; principal; 2024-01-15)
DX: J81.0 Acute pulmonary edema (principal); J96.21 Acute and chronic respiratory failure with hypoxia; Z68.41 Body mass index [BMI] 40.0-44.9, adult; I10 Essential (primary) hypertension; J44.1 Chronic obstructive pulmonary disease with (acute) exacerbation; I13.0 Hypertensive heart and chronic kidney disease with heart failure and stage 1 through stage 4 chronic kidney disease, or unspecified chronic kidney disease; E66.9 Obesity, unspecified; Z88.8 Allergy status to other drugs, medicaments and biological substances; E11.22 Type 2 diabetes mellitus with diabetic chronic kidney disease; K21.9 Gastro-esophageal reflux disease without esophagitis; E11.42 Type 2 diabetes mellitus with diabetic polyneuropathy; E66.01 Morbid (severe) obesity due to excess calories; R26.9 Unspecified abnormalities of gait and mobility; N18.30 Chronic kidney disease, stage 3 unspecified; D72.829 Elevated white blood cell count, unspecified; E11.65 Type 2 diabetes mellitus with hyperglycemia; M19.90 Unspecified osteoarthritis, unspecified site; G47.33 Obstructive sleep apnea (adult) (pediatric); Z96.649 Presence of unspecified artificial hip joint; H91.90 Unspecified hearing loss, unspecified ear; E78.00 Pure hypercholesterolemia, unspecified; F41.9 Anxiety disorder, unspecified; R79.1 Abnormal coagulation profile; I48.91 Unspecified atrial fibrillation; I50.9 Heart failure, unspecified; F32.A Depression, unspecified; M10.9 Gout, unspecified; R53.1 Weakness; Z79.84 Long term (current) use of oral hypoglycemic drugs; Z79.01 Long term (current) use of anticoagulants; Z88.1 Allergy status to other antibiotic agents; Z79.899 Other long term (current) drug therapy; Z98.890 Other specified postprocedural states; Z86.16 Personal history of COVID-19
CPT/HCPCS: 0241U; 36415; 71045; 80053; 80162; 82947; 83605; 83735; 83880; 84145; 84439; 84443; 84484; 85025; 85610; 86140; 93005; 93010; 94010; 94760; 96374; 96375; 99223; 99232; 99238; 99285; 99285-25; A9270-GY; J0456; J1160; J1815-GY; J2930; J3490; J7050

== ENCOUNTER 2024-02-04 20:05 | Emergency (ER) | payer MEDICARE, BC ==
[2024-02-04 21:21] LABS: BASOPHILS PERCENT AUTO 1.1 % (0.0-1.0); EOSINOPHILS PERCENT AUTO 1.4 % (1.0-3.0); HEMATOCRIT 38.9 % (40.0-54.0); HEMOGLOBIN 13.2 g/dL (14.0-18.0); LYMPHOCYTES PERCENT AUTO 19.4 % (20.5-50.1); MEAN CORPUSCULAR HEMOGLOBIN 32.7 pg (27.0-34.0); MEAN CORPUSCULAR HGB CONC 33.9 g/dL (33.0-35.0); MEAN CORPUSCULAR VOLUME 96.3 fL (80-100); MONOCYTES PERCENT AUTO 6.4 % (2-8); NEUTROPHILS PERCENT AUTO 71.7 % (42.2-75.2); PLATELET COUNT,PLT 213 10^3/uL (150-450); RED BLOOD CELL COUNT 4.04 10^6/uL (4.6-6.2); WHITE BLOOD CELL COUNT,WBC 11.4 10^3/uL (5.0-10.0)
[2024-02-04] MEDS: Sodium Chloride 0.9% 1,000 ML IV SCH ×2 (21:26→23:09)
[2024-02-04] MEDS: Hydrocortisone Sodium Succinate 100 MG/2 ML SDV IVPUSH ONE (21:26)
[2024-02-04 21:33] LABS: INR 2.8 (0.9-1.2); PROTHROMBIN TIME 27.1 SEC (9.0-12.0)
[2024-02-04] MEDS: Magnesium Sulfate/Water 2 GM in Premix Bag 1 BAG IV ONE (21:44)
[2024-02-04 21:46] LABS: ALBUMIN 3.2 g/dL (3.4-5.0); ANION GAP 15.9 mEq/L (7-13); BILIRUBIN TOTAL 0.7 mg/dL (0.2-1.0); CALCIUM 8.3 mg/dL (8.5-10.1); CREATININE 2.9 mg/dL (0.70-1.30); EST CRCL DRUG DOSING (CG) 24.88 mL/min; POTASSIUM,K 3.9 mmol/L (3.5-5.1); TSH ULTRASENSITIVE 3.82 uIU/mL (0.36-3.74)
[2024-02-04 21:51] LABS: A/G RATIO 1.14
[2024-02-05 00:28] VITALS: BP 125/67; PULSE 83
[2024-02-05 01:30] LABS: APPEARANCE,URINE SLIGHTLY CLOUDY (CLEAR); BILIRUBIN,URINE SMALL (NEGATIVE); COLOR,URINE YELLOW (YELLOW); GLUCOSE,URINE NEGATIVE (NEGATIVE); KETONES,URINE TRACE (NEGATIVE); LEUKOCYTE ESTERASE,URINE NEGATIVE (NEGATIVE); NITRITE,URINE NEGATIVE (NEGATIVE); OCCULT BLOOD,URINE TRACE-INTACT (NEGATIVE); PROTEIN,URINE 30 (NEGATIVE); UROBILINOGEN,URINE 0.2 mg/dL (0.2-1.0)
[2024-02-05 01:43] LABS: AMORPHOUS SEDIMENT,URINE FEW /HPF (NOT SEEN); BACTERIA,URINE MODERATE /HPF (0-FEW/HPF); EPITHELIAL CELLS,URINE FEW /HPF (NOT SEEN); HYALINE CASTS,URINE FEW; MUCUS,URINE MODERATE /LPF (NOT SEEN); RBC,URINE 0-5 /HPF (0-5)
== END 2024-02-05 01:58 | disposition home or self-care (01) ==
LOC: DL.ED 20:05
DX: I95.9 Hypotension, unspecified (principal); I13.0 Hypertensive heart and chronic kidney disease with heart failure and stage 1 through stage 4 chronic kidney disease, or unspecified chronic kidney disease; I50.9 Heart failure, unspecified; N18.9 Chronic kidney disease, unspecified; I48.91 Unspecified atrial fibrillation; E78.00 Pure hypercholesterolemia, unspecified; J44.9 Chronic obstructive pulmonary disease, unspecified; K21.9 Gastro-esophageal reflux disease without esophagitis; E66.9 Obesity, unspecified; Z86.16 Personal history of COVID-19; Z88.1 Allergy status to other antibiotic agents; Z79.01 Long term (current) use of anticoagulants; Z79.899 Other long term (current) drug therapy; Z79.84 Long term (current) use of oral hypoglycemic drugs; Z68.41 Body mass index [BMI] 40.0-44.9, adult
CPT/HCPCS: 36415; 70450; 80053; 80162; 81001; 82947; 83735; 83880; 84443; 84484; 85025; 85610; 93005; 96365; 96366; 96375; 99284; J1720; J3475; J7030

== ENCOUNTER 2024-11-19 17:18 | Emergency (ER) | payer MEDICARE, BC ==
[2024-11-19] MEDS ORDERED: Sodium Chloride 0.9% 10 ML Syringe FLUSH PRN (17:48)
[2024-11-19 18:00] LABS: BASOPHILS PERCENT AUTO 0.4 % (0.0-1.0); EOSINOPHILS PERCENT AUTO 2.1 % (1.0-3.0); HEMATOCRIT 38.6 % (40.0-54.0); LYMPHOCYTES PERCENT AUTO 21.7 % (20.5-50.1); MEAN CORPUSCULAR HEMOGLOBIN 29.8 pg (27.0-34.0); MEAN CORPUSCULAR HGB CONC 31.1 g/dL (33.0-35.0); MEAN CORPUSCULAR VOLUME 95.8 fL (80-100); MONOCYTES PERCENT AUTO 8.3 % (2-8); NEUTROPHILS PERCENT AUTO 67.5 % (42.2-75.2); PLATELET COUNT,PLT 225 10^3/uL (150-450); RED BLOOD CELL COUNT 4.03 10^6/uL (4.6-6.2); WHITE BLOOD CELL COUNT,WBC 7.9 10^3/uL (5.0-10.0)
[2024-11-19] MEDS ORDERED: Magnesium Sulfate/Water Premix 2 GM in Premix Bag 1 BAG IV ONE (18:01)
[2024-11-19] MEDS: Sodium Chloride 0.9% 1,000 ML IV ONE (18:10)
[2024-11-19 18:16] VITALS: BP 84/59; PULSE 64
[2024-11-19 18:16] LABS: PROTHROMBIN TIME 61.9 SEC (9.0-12.0)
[2024-11-19 18:21] LABS: A/G RATIO 0.94; ALANINE AMINOTRANSFERASE,ALT 21 U/L (16-63); ALBUMIN 3.1 g/dL (3.4-5.0); ALKALINE PHOSPHATASE 149 U/L (46-116); ANION GAP 10.1 mEq/L (7-13); ASPARTATE AMNIOTRANSFERASE,AST 35 U/L (15-37); BILIRUBIN TOTAL 0.6 mg/dL (0.2-1.0); BLOOD UREA NITROGEN,BUN 19 mg/dL (7-18); BUN/CREATININE RATIO 13.4 (No establ ref range); CALCIUM 8.3 mg/dL (8.5-10.1); CARBON DIOXIDE,CO2 31 mmol/L (21-32); CHLORIDE,CL 101 mmol/L (98-107); CREATININE 1.42 mg/dL (0.70-1.30); ESTIMATED GFR 53 mL/min (>=60); ETHANOL BLOOD MEDICAL < 3 mg/dL (0); GLUCOSE RANDOM 332 mg/dL (70-99); MAGNESIUM 2.2 mg/dL (1.8-2.4); POTASSIUM,K 4.1 mmol/L (3.5-5.1); PROTEIN TOTAL,TP 6.4 g/dL (6.4-8.2); SODIUM,NA 138 mmol/L (136-145)
[2024-11-19 18:23] LABS: INR 6.7 (0.9-1.2)
== END 2024-11-19 18:12 ==
LOC: DL.ED 17:18
DX: R42 Dizziness and giddiness (principal); R53.1 Weakness; R46.89 Other symptoms and signs involving appearance and behavior; I10 Essential (primary) hypertension; I48.91 Unspecified atrial fibrillation; E78.00 Pure hypercholesterolemia, unspecified; J44.9 Chronic obstructive pulmonary disease, unspecified; K21.9 Gastro-esophageal reflux disease without esophagitis; E66.9 Obesity, unspecified; Z86.16 Personal history of COVID-19; Z96.649 Presence of unspecified artificial hip joint; Z88.8 Allergy status to other drugs, medicaments and biological substances; Z79.01 Long term (current) use of anticoagulants; Z79.84 Long term (current) use of oral hypoglycemic drugs; Z79.899 Other long term (current) drug therapy
CPT/HCPCS: 36415; 80053; 80307; 82947; 83735; 84484; 85025; 85610; 85730; 93010; 99285; J7030

== ENCOUNTER 2025-07-21 11:25 | Emergency (ER) | payer MEDICARE, BC ==
[2025-07-21 12:01] VITALS: PULSE 70
[2025-07-21] MEDS ORDERED: Dexamethasone 0.1% Ophth Soln 5 ML Bottle EARLF ONE (12:05)
[2025-07-21] MEDS: methylPREDNISolone 4 MG Tab 21 Tab/Dosepak PO ONE (12:18)
[2025-07-21 12:45] VITALS: BP 130/98
== END 2025-07-21 12:25 | disposition home or self-care (01) ==
LOC: DL.ED 11:25
DX: H60.311 Diffuse otitis externa, right ear (principal); I10 Essential (primary) hypertension; K21.9 Gastro-esophageal reflux disease without esophagitis; E78.00 Pure hypercholesterolemia, unspecified; E66.9 Obesity, unspecified; Z88.1 Allergy status to other antibiotic agents; Z88.8 Allergy status to other drugs, medicaments and biological substances; Z79.84 Long term (current) use of oral hypoglycemic drugs; Z79.01 Long term (current) use of anticoagulants; Z79.899 Other long term (current) drug therapy; Z86.16 Personal history of COVID-19; Z87.891 Personal history of nicotine dependence; Z68.32 Body mass index [BMI] 32.0-32.9, adult
CPT/HCPCS: 99282; A9270; J7509; 99283

== ENCOUNTER 2025-09-22 09:00 | Emergency (ER) | payer MEDICARE, BC ==
[2025-09-22] MEDS: Take Home: Cephalexin 500 MG Cap, 6 Cap Pack PO ONE (09:41)
[2025-09-22] MEDS: Take Home: Cephalexin 500 MG Cap, 6 Cap Pack ONE (09:56)
[2025-09-22 09:58] VITALS: BP 113/72; PULSE 67
== END 2025-09-22 09:46 | disposition home or self-care (01) ==
LOC: DL.ED 09:00
DX: K02.9 Dental caries, unspecified (principal); R68.84 Jaw pain; I10 Essential (primary) hypertension; E78.00 Pure hypercholesterolemia, unspecified; I48.91 Unspecified atrial fibrillation; J44.9 Chronic obstructive pulmonary disease, unspecified; Z86.16 Personal history of COVID-19; Z87.891 Personal history of nicotine dependence; Z88.8 Allergy status to other drugs, medicaments and biological substances; Z79.01 Long term (current) use of anticoagulants; Z79.899 Other long term (current) drug therapy
CPT/HCPCS: 99283; A9270